=== PATIENT | female | born 1960 | race African-American/Black ===

== ENCOUNTER → 2019-02-06 15:55 | Outpatient (CLI) | payer OTHER, SELFPAY ==
--- NOTE | 2019-02-06 | DI.MRI.S_ITS ---
PROCEDURE: MR HIP RT WO CON INDICATIONS: RIGHT HIP PAIN TECHNIQUE: Noncontrast coronal T1 spin echo and STIR through the bony pelvis. Coronal and axial T2 fast spin echo with fat saturation, sagittal T1 spin echo, and oblique axial T2 fast spin echo with fat saturation through the hip. COMPARISON: [facility] [place], CR, XR PELVIS WITH BILATERAL LATERAL HIPS, 01/02/2019, 10:19. [facility], MR, MR HIP RT WO CON, 07/02/2017, 12:10. FINDINGS: Image quality: Suboptimal due to bilateral hip arthroplasty and associated hardware artifact At the right hip, no definite suspicious periarticular fluid collection or synovial thickening. Where visualized, no osseous erosion is seen. There is extensive right hip periarticular heterotopic ossification. No intraosseous lesions or fractures. Lower lumbar spondylosis. Tendons and ligaments: The gluteus medius and minimus tendons appear intact, without associated muscle atrophy. There is mild trochanter bursal fluid The nearby proximal iliotibial band also appears intact. The iliopsoas tendon appears intact, without adjacent bursal fluid collections or evidence for impingement syndrome. The origin of the hamstring tendon is intact at the ischial tuberosity, as well as the associated sacrotuberous ligament. The straight and reflected heads of the rectus femoris muscle origin appear intact, as well as the conjoint tendon. The ligamentum teres appears intact where visualized. Soft tissues: Visualized muscles demonstrate normal bulk and internal signal. Quadratus femoris muscle demonstrates no internal edema to suggest ischiofemoral impingement. The proximal sciatic neurovascular bundle appears normal adjacent to the hamstring tendons. No free pelvic fluid. Bladder wall thickness is normal. Genitourinary structures and bowel loops appear normal where visualized. IMPRESSION: Status post right hip arthroplasty. No definite synovial thickening. No visualized bone erosion identified. Right hip periarticular heterotopic ossification, better visualized on the comparison radiograph Mild trochanter bursitis Dictated by: Pablito Mckeon M.D. on 02/09/2019 at 13:45 Approved by: Pablito Mckeon M.D. on 02/09/2019 at 13:54
== END ==
PROVIDERS: Visit Provider Orthopaedic Surgery
DX: M25.551 Pain in right hip (principal); M47.816 Spondylosis without myelopathy or radiculopathy, lumbar region; M70.61 Trochanteric bursitis, right hip; Z96.643 Presence of artificial hip joint, bilateral
CPT/HCPCS: 73721

== ENCOUNTER → 2019-03-27 13:37 | Outpatient (CLI) | payer OTHER, SELFPAY ==
--- NOTE | 2019-03-27 | DI.MRI.S_ITS ---
PROCEDURE: MR HIP RT WO CON INDICATIONS: RIGHT HIP PAIN TECHNIQUE: Noncontrast coronal T1 spin echo and STIR through the bony pelvis. Coronal and axial T2 fast spin echo with fat saturation, sagittal T1 spin echo, and oblique axial T2 fast spin echo with fat saturation through the hip. COMPARISON: [facility], MR, MR HIP RT WO CON, 02/06/2019, 16:24. FINDINGS: Image quality: Degraded by hip arthroplasty artifact. Visualized marrow signal is within normal limits. No definite fracture nor osseous lesion. Bilateral hips are obscured by hip arthroplasty artifact. There is a small amount of fluid lateral to the right greater trochanter, as before. Visualized musculature and tendons are intact. Visualized bowel is grossly unremarkable. Urinary bladder grossly unremarkable. Visualized vasculature is normal in caliber. No regional adenopathy. IMPRESSION: 1. Limited examination secondary to hip arthroplasty artifact bilaterally. 2. No change in right hip trochanteric bursitis. Dictated by: Paz Mccall M.D. on 03/27/2019 at 16:44 Approved by: Paz Mccall M.D. on 03/27/2019 at 16:46
== END ==
PROVIDERS: Visit Provider Orthopaedic Surgery Adult Reconstructive Orthopaedic Surgery
DX: M25.551 Pain in right hip (principal); M70.61 Trochanteric bursitis, right hip; Z96.643 Presence of artificial hip joint, bilateral
CPT/HCPCS: 73721

== ENCOUNTER → 2019-08-12 11:18 | Outpatient (CLI) | payer OTHER, SELFPAY ==
[2019-08-12 12:25] LABS: Hemoglobin A1C% w Est Avg Glu 5.2 % (4.0-6.0)
[2019-08-12 12:26] LABS: Add Manual Diff / Slide Review NO; Basophils Absolute Auto 0 /uL (0-100); Basophils Percent Auto 0.6 % (0-2); Eosinophils Absolute Auto 100 /uL (0-450); Eosinophils Percent Auto 1.6 % (2-4); Hematocrit 39.2 % (36-46); Hemoglobin 13.2 g/dL (12.0-16.0); Lymphocytes Absolute Auto 2100 /uL (1100-4500); Lymphocytes Percent Auto 55.9 % (25-40); Mean Corpuscular HGB Conc 33.8 % (30-36); Mean Corpuscular Hemoglobin 29.4 PG (26-34); Mean Corpuscular Volume 86.9 fL (80-100); Monocytes Absolute Auto 500 /uL (0-900); Monocytes Percent Auto 12.1 % (3-14); Neutrophils Absolute Auto 1100 /uL (1500-7000); Neutrophils Percent Auto 29.8 % (50-75); Platelet Count 154 X10^3/uL (150-400); Red Blood Cell Count 4.51 X10^6/uL (4.0-5.2); Red Cell Distribution Width 14.5 % (11.6-14.8); White Blood Cell Count 3.8 X10^3/uL (4.5-11.0)
[2019-08-12 12:49] LABS: Blood Urea Nitrogen 16 mg/dL (7-17); Calcium 10.3 mg/dL (8.4-10.2); Carbon Dioxide 29 mmol/L (22-32); Chloride 103 mmol/L (98-107); Estimated Glomerular Filt Rate > 60.0 mL/min (>60); Glucose 78 mg/dL (70-100); HEMOLYSIS < 15 (0-50); Potassium 4.7 mmol/L (3.4-5.1); Sodium 138 mmol/L (137-145)
== END ==
PROVIDERS: PCP Family Medicine; Referring Provider Orthopaedic Surgery Adult Reconstructive Orthopaedic Surgery; Visit Provider Orthopaedic Surgery Adult Reconstructive Orthopaedic Surgery
DX: Z01.812 Encounter for preprocedural laboratory examination (principal); R73.9 Hyperglycemia, unspecified
CPT/HCPCS: 36415; 80048; 83036; 85025

== ENCOUNTER → 2019-08-22 11:40 | Outpatient (CLI) | payer OTHER, SELFPAY | PROVIDERS: PCP Family Medicine; Referring Provider Orthopaedic Surgery Adult Reconstructive Orthopaedic Surgery; Visit Provider Orthopaedic Surgery Adult Reconstructive Orthopaedic Surgery | DX: T84.010D Broken internal right hip prosthesis, subsequent encounter (principal) | CPT/HCPCS: 36415; 82495; 83018 ==

== ENCOUNTER → 2019-08-25 10:57 | Outpatient (CLI) | payer OTHER, SELFPAY ==
[2019-08-26 06:49] LABS: COVID19 Sendout Not Detected (Not Detect)
== END ==
PROVIDERS: PCP Family Medicine; Visit Provider Physician Assistant
DX: Z11.59 Encounter for screening for other viral diseases (principal)
CPT/HCPCS: 87635

== ENCOUNTER 2019-08-28 06:21 | Inpatient (IN) | payer OTHER, SELFPAY ==
[2019-08-24 09:53] VITALS: BMI 35.4
[2019-08-28] VITALS (15 sets, daily range): BP systolic 108–150; BP diastolic 64–97; PULSE 63–85; RESP 10–21; TEMP 35.3–36.9; O2SAT 97–100; BMI 35.4
--- NOTE | 2019-08-28 | DI.RAD.S_ITS ---
PROCEDURE: XR PELVIS 1-2V INDICATIONS: RIGHT HIP REVISION TECHNIQUE: Single view of the pelvis COMPARISON: [facility] [place], CR, XR PELVIS WITH BILATERAL LATERAL HIPS, 01/02/2019, 10:19. FINDINGS: Bones: Bilateral total hip arthroplasties. No acute complicating hardware feature identified. No fracture or dislocation. No suspicious bony lesion. Soft tissues: Visualized bowel gas pattern is normal. No suspicious soft tissue calcifications. IMPRESSION: Bilateral total hip arthroplasties. No acute complicating hardware feature demonstrated. Dictated by: Stalin Allen M.D. on 08/28/2019 at 10:46 Approved by: Stalin Allen M.D. on 08/28/2019 at 10:48
[2019-08-28] MEDS: LACTATED RINGERS 1,000 ML 42 ML IV (07:04)
[2019-08-28] MEDS: ACETAMINOPHEN 325 MG TABLET 975 MG PO (07:06)
--- NOTE | 2019-08-28 07:24 | PM.PREOP ---
Pre-operative Note COVID-19 COVID-19 status: Negative Result date/Date tested (Pos, Neg/Pending): 08/25/19 Interval Note History & Physical reviewed/Exam performed by Physician: Yes Changes to H&P: No H&P completed within 30 days and has changed as indicated here:: Plan for revision of right hip MoM hip arthroplasty for elevated ion levels and groin pain.
[2019-08-28] MEDS: CEFAZOLIN 2 GM/100 ML FROZ.PIGGY IV ×2 (07:46→16:31)
--- NOTE | 2019-08-28 08:33 | SUR.OPER ---
Lateral on padded OR bed. Gel axillary roll. Arms secured on padded armboard with pillow supporting top arm. Padded hip positioner braces x4 - anterior and posterior chest and pelvis. Additional gel pad used anterior pelvis. Gel pad under bottom leg from knee to foot and secured with tape over sheet.
[2019-08-28] MEDS: ROPIVACAINE 0.5% PF 5 MG/ML 20ML VIAL 60 ML INJ (08:57)
[2019-08-28] MEDS: ROPIVACAINE 0.5% PF 20ML 60 ML, MORPHINE 4 MG, KETOROLAC 30 MG INJ (08:58)
[2019-08-28] MEDS: TRANEXAMIC ACID 1,000 MG VIAL 1000 MG IV ×2 (09:01→09:39)
[2019-08-28] MEDS: VANCOMYCIN 1,000 MG VIAL 1000 MG TOP (09:39)
[2019-08-28] MEDS: SODIUM CHLORIDE IRRIG SOLUTION 250 ML, POVIDONE-IODINE SPONGE STICKS 1 APPLIC IRR (09:41)
--- NOTE | 2019-08-28 10:39 | PM.OP.1 ---
Operative Date/Time/Diagnoses Date of procedure: 08/28/19 Time of procedure: 10:39 Pre-op diagnosis: failed Right SWETA (metalosis) Post-op diagnosis: same Procedure & Clinicians Procedure: Revision of head liner right total hip arthroplasty Same procedure as scheduled: Yes Indications: Elevated blood cobalt and chromium levels, right hip pain. 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 Informed consent was signed in clinic but was reviewed again in the preoperative area. Patient demonstrates understanding the risks and wishes to proceed with a revision of right total hip arthroplasty likely consisting of a head liner exchange. Patient was then brought back in the operating room where she received a spinal anesthetic and transferred onto the operating room table. She was induced under general anesthesia and was placed in left lateral decubitus position all bony prominences were well padded. The right lower extremity then prepped and draped in normal sterile fashion. A surgical time-out was performed verifying the site and side of surgery as well as the name of the patient. A 15 cm long incision ellipsing out her old surgical scar was performed using 10. Blade once this was ellipsed out was removed from the field electrocautery was used to obtain hemostasis. Sharp dissection was carried down to the level the ITB band for the ITB band was then split with a 10. Blade. Old suture material was removed at this point. It was noted she had a relatively good repair of the short external rotators these were taken down in a sleeve fashion and tagged with a FiberWire. At this point we noted some metalosis staining. Cultures were obtained from intracapsular and sent. Cobra was placed underneath the gluteus medius and excess scar was removed from around the neck of the prosthesis. More metalosis was encountered and this was also removed. I tried to debride as much of the metalosis staining as was possible. The abductors were intact. At this point we dislocated the hip the head was removed from the trunnion. She did have some mild trunnionosis without compromise of the taper. A curved osteotome was then used to make a pocket superior and anterior to the acetabular cup this allowed medius shock in the femoral stem into this pocket and retract the femur anteriorly. This gave us access to the acetabular cup. Soft tissue was removed that overhung the acetabular cup and then the metal liner was removed using a vibration technique. A bone tamp was used to vibrate the acetabular shell and multiple places around the cup and the liner was able to remove removed with a curved osteotome. The acetabular cup was interrogated and found to be well fixed. As well as the stem. A trial 52 mm x 36 mm neutral liner was then screwed into place and we trialed with a 36 mm head +5 neck length. Hip was reduced and found to be stable in position of sleep as well as when hip was flexed and internally rotated rotated to about 60?. At this point it started to lever out. The hip was then dislocated and an 8.5 mm head length was trialed necks. This was found to increase her stability especially with hip flexion internal rotation to about 75-80 degrees. Hip was then uma dislocated the trial components were removed and Betadine solution was used to irrigate the wound. This was left to sit for 5 minutes prior to the copious irrigation with normal saline. A 52 mm x 36 mm neutral polyethylene liner was then selected and malleted into place. Verification of all taps sitting flush was performed. A 36 mm ceramic head with a revision sleeve in +8.5 neck length was selected and malleted onto the trunnion. Hip was then reduced a final time taken through range of motion and I satisfied with the stability. The short external rotators were then repaired with the FiberWire which was passed through the abductors. The capsular sleeve inferiorly was then repaired using an Ethibond in a running fashion. 1 g of vancomycin was then placed into the wound the ITB band was closed with a 1. Vicryl interrupted fashion the superior gluteal fascia was then closed using 1. Vicryl in a running locking fashion. A 1. Vicryl was then used in the fat layer followed by a 2 Vicryl in the subcutaneous layer followed by louise on skin and an Aquacel dressing. Complications: none Post-operative Condition: stable Disposition: PACU Plan for aftercare: 24 hours IV abx, 6 weeks DVT prophylaxis (81mg BID), posterior hip precautions, WBAT RLE
[2019-08-28] MEDS: LACTATED RINGERS 1,000 ML 125 ML IV ×2 (11:37→20:35)
[2019-08-28] MEDS: OXYCODONE IR 5 MG TABLET PO ×2 (11:38→22:25)
--- NOTE | 2019-08-28 14:10 | PC.NURSE ---
Day Shift- Report rec'd from JULIOCESAR Honeycutt in PACU at 1058. Pt arrived on unit at 1108 via bed. Pt oriented to call light and bed functions. Pt reports 6/10 aching to right hip. Ice pack in place. PRN Oxycodone given at 1138 with applesauce. RLE numbness from toes to groin area and LLE numbness from toes to mid thigh upon arrival. Pt's Nikunj in room visiting.
[2019-08-28] MEDS: ACETAMINOPHEN 325 MG TABLET 650 MG PO ×2 (15:19→20:35)
--- NOTE | 2019-08-28 15:22 | PT.IIE ---
Current Diagnoses Broken internal right hip prosthesis, subsequent encounter (08/28/19) Surgery Performed Operation Date: 08/28/19 07:45 Actual Procedures p Total Hip Arthroplasty Revision- Both Components(Right) - Jermaine Moreno MD Surgical History (Last Updated 08/24/19 @ 10:14 by Olga Casas RN) History of bilateral total hip arthroplasty (Acute 2004) History of bunionectomy (Acute) History of section (Acute) History of endometrial ablation (Acute 1999) History of hysterectomy (Acute 2014) History of removal of skin mole (Acute 2018) History of surgery (Acute 2018) Hx of cholecystectomy (Acute) Hx of removal of cyst (Acute) S/P skin biopsy (Acute 08/21/19) Medical History (Last Updated 08/24/19 @ 10:19 by lOga Casas RN) Bleeding hemorrhoids (Acute) Chronic back pain (Acute) GERD (gastroesophageal reflux disease) (Acute) HLD (hyperlipidemia) (Acute) HTN (hypertension) (Acute) Injury of left foot (Acute) Leukopenia (Acute) Osteoarthritis (Acute) Right shoulder strain (Acute) Uterine fibroid (Acute) Physical Therapy Inpatient Evaluation/Re-Eval M1 PT/OT-IP Prior Functional Status Start: 08/28/19 13:21 Freq: NEEDED Status: Active Protocol: Document 08/28/19 15:05 (Rec: 08/28/19 15:22 [email or web address]) Medical Review Prior Functional Status Medical History Reviewed Yes Diet/Fluid Consistency Regular Communication no deficits noted. able to make needs known Mobility and Gait Pt is an independent ambulator without AD. Able to garden and go for walks but she has difficulty getting up from the floor. Pt also likes to use eliptical for exercise. Activities of Daily Living and IADL's independent for ADLs and IADLs . able to drive Social History Household Members spouse,family,children Living Arrangements House Number of Floors (Floors) Two Floors Number of Stairs To Enter/Railing? split level house. 3 ARACELI to front entrance w L rails, 9 steps to 2nd floor with her bedroom, 9 steps to basement. 1 platform step through garage entrance Home Environment High Toilet,Walk in Shower Home Equipment Straight Cane,Crutches,Raised Toilet Seat w/Armrests,Tub Transfer Bench,Hand Held Shower Employment Status Retired Additional Social History Comment Pt lives with her , sister, dtr and 2 sons in [facility]. Pt had her first L SWETA in 2004 and R SWETA in 2005 M2 PT-IP Current Condition Start: 08/28/19 13:21 Freq: NEEDED Status: Active Protocol: Document 08/28/19 15:05 (Rec: 08/28/19 15:22 [email or web address]) Physical Therapy Current Condition Current Condition Evaluation Date 08/28/19 Treatment Diagnosis revision of R SWETA, difficulty in walking Onset Date 08/28/19 Precautions Posterior Hip Precautions No Hip Flexion > 90 degrees,No Hip Internal Rotation,No Hip Adduction Weight Bearing Status Weight Bearing Status Weight Bear as Tolerated M3 PT-IP Subjective Start: 08/28/19 13:21 Freq: NEEDED Status: Active Protocol: Document 08/28/19 15:05 (Rec: 08/28/19 15:22 [email or web address]) Subjective Physical Therapy Visit Type Type Initial Evaluation Visit Start Time 14:15 Visit Stop Time 15:32 Total Visit Minutes 32 Notes pt's Nikunj at bedside . Abduction pillow in place. Number of IDENTIFICATION CLERK Visits 0 Physical Therapy Visit Comments Patient Comments Im feeling pretty good. Patient Goals To return home once she is medically stable Therapy Pain Assessment Pain When Pain Assessed During Mobility Pain Present Pain Present Pain Reported Location Right Hip Intensity 7 Scale Used Numeric (0 - 10) Description Aching Pain Behaviors Facial Grimacing Pain Management Techniques Modification of Treatment,Re- positioning,Timing of Activity with Medications M4 PT-IP Mobility and Gait Start: 08/28/19 13:21 Freq: NEEDED Status: Active Protocol: Document 08/28/19 15:05 (Rec: 08/28/19 15:22 [email or web address]) PT-Bed Mobility Assessment Supine to Sit Supine to Sit Contact Guard Assistance Scooting Scooting to Edge of Bed Contact Guard Assistance PT-Transfer Assessment Sit to and From Stand Sit to and from Stand Contact Guard Assistance,Use of Upper Extremities Equipment Transfer Assistive Device Gait Belt,Front Wheeled Walker Orthotic/Prosthetic Devices or Brace: No Transfers Transfer Destination Bed,Chair Transfer Technique Stand Step Pivot Transfer Ability Level of Assist Contact Guard Assistance,Use of Upper Extremities Comments Mobility Comments Pt was in bed upon PT arrival. Feeling a little bit drowsy after being medicated. Pt recalled all 3 precautions. She completed sit to semi long sit with elbows support in bed. She then used gait belt to pivot her RLE slowly and she was cautious with her precautions. Pt then sat at R side EOB and able to scoot forward SBA/CBA. Pt completed STS afterwards with CGA and FWW and practiced lateral shifting. Denied increased pain to WB on RLE. She then proceed to amb 2 laps within her room with step to gait pattern. Pt is well aware of her heel toe pattern and presents proper gait mechanics . She amb with ~30 ft in total and able to sit down in chair with proper descent and hand placements on armrests. Pt denied discomfort. Nursing staff came in to for wound check . Left pt with call light and post op booklet. Gait Assessment Gait Gait Assistance Required: Contact Guard Assist Distance (Feet) 30 Able to Maintain Weight Bearing Status Yes During Gait Assistive Devices Assistive Device Gait Belt,Front Wheeled Walker Orthotic/Prosthetic Devices or Brace: No Gait Deviations General Gait Pattern Antalgic,Decreased Stride Length,Decreased Feet Clearance,Step-to Gait Factors Limiting Gait Function Factors Limiting Gait Function Decreased Activity Tolerance, Decreased Strength,Limited Range of Motion,Pain,Poor Balance Comments Gait Comments see mobility comments Stair Climbing Assessment Comments Stair Climbing Comments not assessed yet d/t limited activity tolerance. PT-Balance Assessment Sitting Balance and Reactions Static Sitting Balance Ability Normal Dynamic Sitting Balance Ability Normal Standing Balance and Reactions Static Standing Balance Ability Good Dynamic Standing Balance Ability Good Device Used FWW M5 PT-IP Objective Assessments Start: 08/28/19 13:21 Freq: NEEDED Status: Active Protocol: Document 08/28/19 15:05 (Rec: 08/28/19 15:22 [email or web address]) Orientation Orientation/Cognition Level of Alertness Alert Orientation Name,Age,Birthday,Month,Date, Year,Day of Week,Place, Situation Language Function Ability No Deficits Noted Safety Awareness Understands Safety Issues Memory Description No Deficits Noted Gross Range of Motion Upper Extremity ROM Assessment Within Functional Limits Lower Extremity ROM Assessment Right Impaired Strength Upper Extremity Strength Assessment Within Functional Limits Lower Extremity Strength Assessment Right Impaired Hip 4/5 Knee 5/5 Coordination Assessment Gross Coordination Gross Coordination WNL Sensation Assessment Sensation Gross Sensation WNL Muscle Tone Muscle Tone WNL Yes M6 PT-IP Treatment Start: 08/28/19 13:21 Freq: NEEDED Status: Active Protocol: Document 08/28/19 15:05 (Rec: 08/28/19 15:22 [email or web address]) Physical Therapy Treatment Exercises Exercises Ankle Pumps,Gluteal Sets,Quad Sets,Heel Slides Education Education Provided Precautions,Weight Bearing Status,Post-Op Packet,Safety M7 PT-IP Assessment and Plan Start: 08/28/19 13:21 Freq: NEEDED Status: Active Protocol: Document 08/28/19 15:05 (Rec: 08/28/19 15:22 [email or web address]) PT Summary Assessment and Plan Potential Rehabilitation Potential Excellent Status of Condition at Evaluation Stable Summary Impairments Pain,ROM,Strength,Balance, Cognition,Bed Mobility, Transfers,Gait,Activity Tolerance Assessment Summary This is a low complexity evaluation for this 59 yo female s/p POD0 revision of R SWETA posterior approach. PLOF= independent without AD for all mobility and functional activities who has a very supportive family to assist if needed. Upon assessment, pt shows good mobility with CGA and FWW. She has good understanding with post op precautions and safety awareness. Expect pt to complete stair training and CG training tomorrow morning then she could be d/c home with family's assistance and outpatient PT to improve her mobility and strength. Goals Bed Mobility Goal Standby Assistance Transfer Goal Standby Assistance,Front Wheeled Walker Gait Goal Standby Assistance,Front Wheel Walker Gait Distance 100 Other Goals up/down 1 PF step with FWW 9 steps with L rail SBA or STITCHDOWN THREAD LASTER Days to Meet Goals 3 Frequency of Treatment Frequency Of Treatment Twice a Day Treatment Plan Physical Therapy Treatment Plan Bed Mobility Training,Transfer Training,Gait Training, Therapeutic Exercise,Balance Retraining,Post Op Education, Discharge Planning,Hot or Cold Pack,Neuromuscular Re-ed Recommendations To Nursing Amount of Assist Needed 1 Person Assist Discharge Recommendations PT Discharge Recommendations Home with Assistance, Outpatient PT Transportation Needs at Discharge Private Vehicle
[2019-08-28] MEDS: DOCUSATE 100 MG CAPSULE PO (20:35)
--- NOTE | 2019-08-28 22:44 | PC.NURSE ---
Addendum entered by Adele Barcenas R.N. 08/28/19 22:58: Lab inquires re cbc ordered for 1100 this morning. This was cancelled as far past 1100 at this evening hour. Pt has orders for H and H in a.m. 08/28. Original Note: Assumed care of this patient @ 1999. Awake and alert in bed. Adductor pillow in place. Palpable pedal pulse right foot. BL calf scd's in place. Denies nausea. Taking diet well and voiding well in bathroom with minimal assistance per [employer] statement. Denies allergy to oxycodone. Administered oxycodone to manage right hip pain 4-07/04. Ice to site. Aquacel dressing to right hip is dry and intact. Encouraged to call for needs.
[2019-08-29] VITALS (9 sets, daily range): BP systolic 81–138; BP diastolic 32–81; PULSE 57–75; RESP 16–18; TEMP 36.3–36.8; O2SAT 99–100
[2019-08-29] MEDS: CEFAZOLIN 2 GM/100 ML FROZ.PIGGY IV (00:03)
[2019-08-29] MEDS: OXYCODONE IR 5 MG TABLET PO ×2 (05:15→09:02)
[2019-08-29 05:17] LABS: Hematocrit 33.5 % (36-46); Hemoglobin 11.1 g/dL (12.0-16.0)
--- NOTE | 2019-08-29 08:57 | CM.DANOTE ---
DCP: Case received, EMR reviewed and met with patient. Introduced self and role. Was able to meet with patient and obtain information from her regarding her baseline mobility and living situation. DCP assessment completed with information currently available. Patient is a 59 year old female who admitted yesterday morning to the care of the orthopedic team. PCP: Dr. Prescott. Payer: confirmed: Aletha Fermin. Patient came to the hospital for a surgical procedure. She had right total hip arthroplasty. Patient has had history of right hip prosthesis. Met with patient in her room. She was sitting up in bed having breakfast. Patient is alert and oriented, pleasant. She is currently retired, and resides in [place] with her , sister, and sons. She does have family support for when she goes home. She is independent at baseline, no DME used. She does have stairs in her home. P: DCP to continue to follow. Patient will be working with P.T. again today. She has outpatient P.T. set up at [facility] in [place]. She should be able to go home when she is medically stable and cleared by P.T. Lulu Alicea RN/Formulation Chemist
[2019-08-29] MEDS: DOCUSATE 100 MG CAPSULE PO (09:00)
[2019-08-29] MEDS: ACETAMINOPHEN 325 MG TABLET 650 MG PO ×2 (09:00→14:48)
[2019-08-29] MEDS: SODIUM CHLORIDE 0.9% 1,000 ML 1000 ML IV (09:30)
--- NOTE | 2019-08-29 10:46 | PM.PN.1 ---
Subjective Subjective Date Patient Seen: 08/29/19 Time Patient Seen: 10:46 Interval history: Patient is POD#1 from head liner exchange for elevated metal ions and groin pain from MoM R SWETA. Exam Vital Signs (past 8 hours): - 08/29/19 04:50 08/29/19 08:00 08/29/19 08:13 Temperature 98.2 F 97.4 F L Pulse Rate 57 L 73 68 Respiratory Rate 16 16 16 Blood Pressure 125/81 138/80 Pulse Oximetry 100 100 99 Oxygen Delivery Method Room Air Oxygen Flow Rate 0 Narrative Exam Narrative: NV intact in RLE, Dressing c/d/i Objective Labs Result Diagrams: 08/29/19 05:00 Labs: Laboratory Results - last 24 hr 08/29/19 05:00 Hgb 11.1 L Hct 33.5 L Assessment & Plan Assessment & Plan narrative: Patient is a 59 yo F who underwent head liner exchange of R SWETA for elevated metal ions and right groin pain from MoM SWETA. Overall she is doing well. She was mobilizing with PT well yesterday but this am had some orthostatic hypotension. She has recieved a liter bollus of saline. Will contnue to monitor. Plan ot DC home today pending PT clearance. Time Spent With Patient Time with patient: less than 15 minutes Quality VTE Deep Vein Thrombosis/Pulmonary Embolism Present on Admission: No
--- NOTE | 2019-08-29 11:11 | PT.IPTN ---
Current Diagnoses Broken internal right hip prosthesis, subsequent encounter (08/28/19) Surgery Performed Operation Date: 08/28/19 07:45 Actual Procedures p Total Hip Arthroplasty Revision- Both Components(Right) - Jermaine Moreno MD Physical Therapy Treatment Note M2 PT-IP Current Condition Start: 08/28/19 13:21 Freq: NEEDED Status: Active Protocol: Document 08/28/19 15:05 HH (Rec: 08/28/19 15:22 [id number]) Physical Therapy Current Condition Current Condition Evaluation Date 08/28/19 Treatment Diagnosis revision of R SWETA, difficulty in walking Onset Date 08/28/19 Precautions Posterior Hip Precautions No Hip Flexion > 90 degrees,No Hip Internal Rotation,No Hip Adduction Weight Bearing Status Weight Bearing Status Weight Bear as Tolerated M3 PT-IP Subjective Start: 08/28/19 13:21 Freq: NEEDED Status: Active Protocol: Document 08/29/19 10:40 KS (Rec: 08/29/19 12:48 KS [id number]) Subjective Physical Therapy Visit Type Type Treatment Note Visit Start Time 10:40 Visit Stop Time 11:11 Total Visit Minutes 31 Number of CABLE ASSEMBLER AND SWAGER Visits 1 Physical Therapy Visit Comments Patient Comments Pt agreeable to work w/ therapy. Patient Goals To return home once she is medically stable Therapy Pain Assessment Pain When Pain Assessed During Mobility Pain Present Pain Present Pain Reported Location Right Hip Scale Used no number give. tolerable Description Aching Pain Behaviors Facial Grimacing Pain Management Techniques Apply Cold,Modification of Treatment,Re-positioning, Timing of Activity with Medications M4 PT-IP Mobility and Gait Start: 08/28/19 13:21 Freq: NEEDED Status: Active Protocol: Document 08/29/19 10:40 KS (Rec: 08/29/19 12:48 KS [id number]) PT-Bed Mobility Assessment Supine to Sit Supine to Sit Contact Guard Assistance Scooting Scooting to Edge of Bed Contact Guard Assistance PT-Transfer Assessment Sit to and From Stand Sit to and from Stand Contact Guard Assistance,Use of Upper Extremities Equipment Transfer Assistive Device Gait Belt,Front Wheeled Walker Orthotic/Prosthetic Devices or Brace: No Transfers Transfer Destination Bed Transfer Ability Level of Assist Contact Guard Assistance,Use of Upper Extremities Comments Mobility Comments Pt in bed upon arrival from therapy. Reviewed LE exercises including ankle pumps, quad sets, glute sets, and heel slides which pt reports she has been completing in bed. Pt able to recall 3/3 precautions. Pt then sup<>sit CGA w/ HOB flat. Pt CGA for scooting to EOB and CGA for sit<>stand w/ FWW and use of BUE. Upon standing, pt reported feelings of dizziness and nausea. Instructed pt to sit for BP: 127/79. Pt then stood again BP:129/77. Pt still having slight dizziness but able to completed 2 bouts of marching in place, both 1 min long before requesting to sit. Pt CGA stand<>sit and sit <>sup. Pt left in bed w/ ice applied to hip, SCDs on, and all needs in reach. Gait Assessment Comments Gait Comments Unable to assess d/t reported dizziness. Stair Climbing Assessment Comments Stair Climbing Comments not assessed yet d/t limited activity tolerance and dizziness. PT-Balance Assessment Sitting Balance and Reactions Static Sitting Balance Ability Normal Dynamic Sitting Balance Ability Normal Standing Balance and Reactions Static Standing Balance Ability Good Dynamic Standing Balance Ability Good Device Used FWW M5 PT-IP Objective Assessments Start: 08/28/19 13:21 Freq: NEEDED Status: Active Protocol: Document 08/28/19 15:05 (Rec: 08/28/19 15:22 [email or web address]) Orientation Orientation/Cognition Level of Alertness Alert Orientation Name,Age,Birthday,Month,Date, Year,Day of Week,Place, Situation Language Function Ability No Deficits Noted Safety Awareness Understands Safety Issues Memory Description No Deficits Noted Gross Range of Motion Upper Extremity ROM Assessment Within Functional Limits Lower Extremity ROM Assessment Right Impaired Strength Upper Extremity Strength Assessment Within Functional Limits Lower Extremity Strength Assessment Right Impaired Hip 4/5 Knee 5/5 Coordination Assessment Gross Coordination Gross Coordination WNL Sensation Assessment Sensation Gross Sensation WNL Muscle Tone Muscle Tone WNL Yes M6 PT-IP Treatment Start: 08/28/19 13:21 Freq: NEEDED Status: Active Protocol: Document 08/29/19 10:40 KS (Rec: 08/29/19 12:48 KS [id number]) Physical Therapy Treatment Exercises Exercises Ankle Pumps,Gluteal Sets,Quad Sets,Heel Slides Education Education Provided Precautions,Weight Bearing Status,Post-Op Packet,Safety M7 PT-IP Assessment and Plan Start: 08/28/19 13:21 Freq: NEEDED Status: Active Protocol: Document 08/29/19 10:40 KS (Rec: 08/29/19 12:48 KS [id number]) PT Summary Assessment and Plan Potential Rehabilitation Potential Excellent Status of Condition at Evaluation Stable Summary Impairments Pain,ROM,Strength,Balance, Cognition,Bed Mobility, Transfers,Gait,Activity Tolerance Assessment Summary Pt continues to be CGA for bed mobility and sit<>stand. Limited by dizziness and nausea today likely to pain medication. Pt completed 2, 1 min bouts of marching in place w/ FWW. Will assess pts ambulation and possibly stair training later this afternoon w/ pts depending on how pt is feeling. Pt will need to complete 9 steps w/ caregiver prior to d/c. Anticipate pt will become strong enough to return home w/ family providing assistance. Goals Bed Mobility Goal Standby Assistance Transfer Goal Standby Assistance,Front Wheeled Walker Gait Goal Standby Assistance,Front Wheel Walker Gait Distance 100 Other Goals up/down 1 PF step with FWW 9 steps with L rail SBA or GARDE MANGER Days to Meet Goals 3 Frequency of Treatment Frequency Of Treatment Twice a Day Treatment Plan Physical Therapy Treatment Plan Bed Mobility Training,Transfer Training,Gait Training, Therapeutic Exercise,Balance Retraining,Post Op Education, Discharge Planning,Hot or Cold Pack,Neuromuscular Re-ed Recommendations To Nursing Amount of Assist Needed 1 Person Assist Discharge Recommendations PT Discharge Recommendations Home with Assistance, Outpatient PT Transportation Needs at Discharge Private Vehicle
--- NOTE | 2019-08-29 11:59 | PC.NURSE ---
Patient had urge to urinate this morning, assisted to sit at edge of bed. Patient complained of some dizziness. BP lowered with sitting at edge of bed, attempted to sit for a few minutes hoping it would resolve but did not. Dr. Moreno up to unit at this time and notified, 1 liter normal saline bolus ordered and given. Patient assisted to lay back in bed and attempted to use bedpan instead for safety. Bolus completed and patient now feeling better. Patient was up to BSC with HOSPITAL SECURITY OFFICER and RN and walker, denied dizziness and blood pressure remained stable. Plan for PT and training with today. Discharge anticipated if stable. Continue to monitor.
--- NOTE | 2019-08-29 13:34 | PT.IPTN ---
Current Diagnoses Broken internal right hip prosthesis, subsequent encounter (08/28/19) Surgery Performed Operation Date: 08/28/19 07:45 Actual Procedures p Total Hip Arthroplasty Revision- Both Components(Right) - Jermaine Moreno MD Physical Therapy Treatment Note M2 PT-IP Current Condition Start: 08/28/19 13:21 Freq: NEEDED Status: Active Protocol: Document 08/28/19 15:05 HH (Rec: 08/28/19 15:22 HH [id number]) Physical Therapy Current Condition Current Condition Evaluation Date 08/28/19 Treatment Diagnosis revision of R SWETA, difficulty in walking Onset Date 08/28/19 Precautions Posterior Hip Precautions No Hip Flexion > 90 degrees,No Hip Internal Rotation,No Hip Adduction Weight Bearing Status Weight Bearing Status Weight Bear as Tolerated M3 PT-IP Subjective Start: 08/28/19 13:21 Freq: NEEDED Status: Active Protocol: Document 08/29/19 12:54 KS (Rec: 08/29/19 14:46 KS [id number]) Subjective Physical Therapy Visit Type Type Treatment Note Visit Start Time 12:54 Visit Stop Time 13:34 Total Visit Minutes [address] OFFICER Visits 2 Physical Therapy Visit Comments Patient Comments Pt agreeable to work w/ therapy. Patient Goals To return home once she is medically stable Therapy Pain Assessment Pain When Pain Assessed During Mobility Pain Present Pain Present Pain Reported Location Right Hip Scale Used no number give. tolerable Description Aching Pain Behaviors Facial Grimacing Pain Management Techniques Apply Cold,Modification of Treatment,Re-positioning, Timing of Activity with Medications M4 PT-IP Mobility and Gait Start: 08/28/19 13:21 Freq: NEEDED Status: Active Protocol: Document 08/29/19 12:54 KS (Rec: 08/29/19 14:46 KS [id number]) PT-Bed Mobility Assessment Supine to Sit Supine to Sit Standby Assistance Scooting Scooting to Edge of Bed Standby Assistance PT-Transfer Assessment Sit to and From Stand Sit to and from Stand Contact Guard Assistance,Use of Upper Extremities Equipment Transfer Assistive Device Gait Belt,Front Wheeled Walker Orthotic/Prosthetic Devices or Brace: No Transfers Transfer Destination Bed Transfer Ability Level of Assist Contact Guard Assistance,Use of Upper Extremities Comments Mobility Comments Pt in bed upon arrival from therapy w/ in room for caregiver traning. PT SBA for sup<>sit and scooting EOB. CGA for sit<>stand w/ FWW. Pt denied dizziness upon standing . Pt then ambulated CGA to w/c to be taken to stairs. Pt then completed 3x3 steps CGA w / cues for sequencing. Pts provided cues and CGA on 2nd and 3rd sets. Pt then ambulated ~75 ft back towards room w/ FWW and CGA provided by and was taken in w/ c remainder of distance. Pt sit<>stand from w/c and ambulated to bed w/ FWW CGA provided by . Pt returned to bed SBA. Pt left in bed w/ all needs in reach and ice and SCDs applied. Gait Assessment Gait Gait Assistance Required: Contact Guard Assist Distance (Feet) 85 Able to Maintain Weight Bearing Status Yes During Gait Assistive Devices Assistive Device Gait Belt,Front Wheeled Walker Orthotic/Prosthetic Devices or Brace: No Gait Deviations General Gait Pattern Antalgic,Decreased Stride Length,Decreased Feet Clearance,Step-to Gait Factors Limiting Gait Function Factors Limiting Gait Function Decreased Activity Tolerance, Decreased Strength,Limited Range of Motion,Pain,Poor Balance Comments Gait Comments Pt ambulated ~85 ft w/ FWW and CGA safely provided by . Cues for equal step length and heel toe walking. Stair Climbing Assessment Evaluation Level of Assist On Stairs Contact Guard Assistance,1 Person Assistance Devices Stair Climbing Assistive Devices Left Railing,Right Railing Technique/Endurance Stair Climbing Direction Ascend and Descend Stair Climbing Technique Step to Step Number of Steps Climbed 3 Stair Climbing Set # Repetitions (reps) 3 Comments Stair Climbing Comments Pt ascended/descended 3 steps x3 w/ CGA from therapist on first step and CGA and cues from on second and third sets. Pt used step to step pattern and bilateral handrails as she has at home. Pt and state they feel safe to complete steps at home. PT-Balance Assessment Sitting Balance and Reactions Static Sitting Balance Ability Normal Dynamic Sitting Balance Ability Normal Standing Balance and Reactions Static Standing Balance Ability Good Dynamic Standing Balance Ability Good Device Used FWW M5 PT-IP Objective Assessments Start: 08/28/19 13:21 Freq: NEEDED Status: Active Protocol: Document 08/28/19 15:05 (Rec: 08/28/19 15:22 [email or web address]) Orientation Orientation/Cognition Level of Alertness Alert Orientation Name,Age,Birthday,Month,Date, Year,Day of Week,Place, Situation Language Function Ability No Deficits Noted Safety Awareness Understands Safety Issues Memory Description No Deficits Noted Gross Range of Motion Upper Extremity ROM Assessment Within Functional Limits Lower Extremity ROM Assessment Right Impaired Strength Upper Extremity Strength Assessment Within Functional Limits Lower Extremity Strength Assessment Right Impaired Hip 4/5 Knee 5/5 Coordination Assessment Gross Coordination Gross Coordination WNL Sensation Assessment Sensation Gross Sensation WNL Muscle Tone Muscle Tone WNL Yes M6 PT-IP Treatment Start: 08/28/19 13:21 Freq: NEEDED Status: Active Protocol: Document 08/29/19 12:54 KS (Rec: 08/29/19 14:46 KS [id number]) Physical Therapy Treatment Education Education Provided Precautions,Weight Bearing Status,Post-Op Packet,Safety M7 PT-IP Assessment and Plan Start: 08/28/19 13:21 Freq: NEEDED Status: Active Protocol: Document 08/29/19 12:54 KS (Rec: 08/29/19 14:46 KS [id number]) PT Summary Assessment and Plan Potential Rehabilitation Potential Excellent Status of Condition at Evaluation Stable Summary Impairments Pain,ROM,Strength,Balance, Cognition,Bed Mobility, Transfers,Gait,Activity Tolerance Assessment Summary Pt SBA for bed mobility, CGA for transfers and ambulation and stairs. Conducted caregiver training w/ pts who was able to apply gait belt and provide appropriate assist and cues when needed for bed mobility, transfers, ambulation and stairs. Pt ambulated ~85 ft w/ FWW and has FWW to use at home. Pt also completed 9 total steps w/ bilat handrail. Pt has OPPT set up and her and state they feel safe to perform ambulation and stairs at home. Goals Bed Mobility Goal Standby Assistance Transfer Goal Standby Assistance,Front Wheeled Walker Gait Goal Standby Assistance,Front Wheel Walker Gait Distance 100 Other Goals up/down 1 PF step with FWW 9 steps with L rail SBA or DIRECTOR CLINICAL OPERATIONS Days to Meet Goals 3 Frequency of Treatment Frequency Of Treatment Twice a Day Treatment Plan Physical Therapy Treatment Plan Bed Mobility Training,Transfer Training,Gait Training, Therapeutic Exercise,Balance Retraining,Post Op Education, Discharge Planning,Hot or Cold Pack,Neuromuscular Re-ed Recommendations To Nursing Amount of Assist Needed 1 Person Assist Discharge Recommendations PT Discharge Recommendations Home with Assistance, Outpatient PT Transportation Needs at Discharge Private Vehicle
--- NOTE | 2019-08-29 15:28 | PC.NURSE ---
Patient worked with Valentina copeland 2 today and cleared for discharge. BP has been stable since this morning after IV fluid bolus and tolerated ambulation with assistance and walker and then a shower with MOLD YARD SUPERVISOR's assistance. Patient feeling ready for discharge to home. Aquacel remains intact without drainage. IV removed intact. Patient to flower picker prescriptions but states she is going to try to avoid narcotic use and stay with tylenol and ice as needed for pain control. Aspirin for blood clot prevent to start per prescription and patient aware. She states understanding of discharge instructions and she and her have no further questions at this time. Patient states her follow up appointment is already scheduled. INstructed to call surgeon for questions or concerns. Instructed to seek emergent care for emergency. Escorted out via wheelchair with all belongings to be discharged to home with her by PAT.
== END 2019-08-29 15:32 | disposition home or self-care (01) | DRG 468 ==
PROVIDERS: Admitting Provider Orthopaedic Surgery Adult Reconstructive Orthopaedic Surgery; PCP Family Medicine; Referring Provider Orthopaedic Surgery Adult Reconstructive Orthopaedic Surgery; Visit Provider Orthopaedic Surgery Adult Reconstructive Orthopaedic Surgery
PROC: 0SRR03A Replacement of Right Hip Joint, Femoral Surface with Ceramic Synthetic Substitute, Uncemented, Open Approach (ICD-10-PCS; principal; 2019-08-28 07:45)
DX: T84.090A Other mechanical complication of internal right hip prosthesis, initial encounter (principal); T56.891A Toxic effect of other metals, accidental (unintentional), initial encounter; T56.2X1A Toxic effect of chromium and its compounds, accidental (unintentional), initial encounter; J45.20 Mild intermittent asthma, uncomplicated; I10 Essential (primary) hypertension; Z96.643 Presence of artificial hip joint, bilateral; I95.1 Orthostatic hypotension
CPT/HCPCS: 36415; 36592; 72170; 85014; 85018; 87070; 87075; 87176; 87205; 97110; 97116; 97161; 97530; C1776; J0690; J1100; J1885; J2250; J2270; J2405; J2704; J2795; J3010

== ENCOUNTER → 2023-07-03 11:13 | Outpatient (CLI) | payer OTHER, SELFPAY ==
[2020-06-02 09:26] VITALS: BMI 35.4
--- NOTE | 2023-07-03 12:46 | DI.MRI.S_ITS ---
PROCEDURE: MR SHOULDER LT WO CON INDICATIONS: PAIN IN LEFT SHOULDER TECHNIQUE: Noncontrast oblique coronal T2 fast spin echo with fat saturation, oblique sagittal T1 spin echo and T2 fast spin echo with fat saturation, axial T1 spin echo and T2 fast spin echo with fat saturation through the shoulder. COMPARISON: [facility] [place], CR, XR SHOULDER 2+ VIEWS LEFT, 06/10/2023, 11:19. FINDINGS: Image quality: Limited evaluation secondary to patient motion and susceptibility artifact with inability of fat suppression on multiple sequences. Rotator cuff: In the supraspinatus, there is mild tendinosis with low-grade interstitial tear at the footprint. The infraspinatus is unremarkable. The teres minor is unremarkable. Moderate tendinosis of the subscapularis with high-grade tear. There is mild fatty infiltration the supraspinatus infraspinatus. Bones and bursae: Mild degenerative changes of the acromioclavicular joint. Type 1 acromion. No os acromiale. No significant subacromial bursitis. Marrow edema in the greater tuberosity, reactive. There is severe degenerative change of the glenohumeral joint with complete chondral denudation of the humeral head, and humeral head osteophytosis. No acute fracture. Capsule and soft tissues: Diffuse labral degeneration. Severe tenosynovitis of the extra-articular biceps tendon. Mild tendinosis of the intra-articular biceps tendon. Large glenohumeral effusion with synovitis. Large subcoracoid bursitis. IMPRESSION: 1. Susceptibility artifact, limiting evaluation. 2. Low-grade tear of the supraspinatus. 3. High-grade tear of the subscapularis. 4. Severe tenosynovitis of the extra-articular biceps tendon. 5. severe degenerative changes of the glenohumeral joint. Large glenohumeral effusion with synovitis. Large subcoracoid bursitis. Dictated by: Deirdre Garibay M.D. on 07/03/2023 at 13:55 Approved by: Deirdre Garibay M.D. on 07/03/2023 at 14:07
== END ==
LOC: MRI 11:15
PROVIDERS: Family Provider Student in an Organized Health Care Education/Training Program; PCP Student in an Organized Health Care Education/Training Program; Referring Provider Orthopaedic Surgery; Visit Provider Orthopaedic Surgery
DX: M25.512 Pain in left shoulder (principal); M75.102 Unspecified rotator cuff tear or rupture of left shoulder, not specified as traumatic; M65.812 Other synovitis and tenosynovitis, left shoulder; M75.52 Bursitis of left shoulder
CPT/HCPCS: 73221

== ENCOUNTER 2023-07-18 14:30 | Outpatient (RCR) | payer OTHER, SELFPAY ==
[2020-06-02 09:26] VITALS: BMI 35.4
--- NOTE | 2023-04-02 17:04 | PT.OIE ---
Current Diagnoses Lymphedema, not elsewhere classified (04/02/23) Past Medical History (Last Reviewed 06/21/20 @ 18:28 by Shawn Ching MD) Bleeding hemorrhoids Chronic back pain GERD (gastroesophageal reflux disease) HLD (hyperlipidemia) HTN (hypertension) Injury of left foot Leukopenia Osteoarthritis Right shoulder strain Uterine fibroid Past Surgical History (Last Reviewed 06/21/20 @ 18:28 by Shawn Ching MD) History of bilateral total hip arthroplasty (2004) History of bunionectomy History of section History of endometrial ablation (1999) History of hysterectomy (2014) History of removal of skin mole (2018) History of surgery (2018) Hx of cholecystectomy Hx of removal of cyst S/P skin biopsy (08/21/19) Visit Care Team Role Provider Type Tia Diaz MD Family Provider Non-Staff Primary Care Provider Specialty: Medical Address: [address] [place] [address], [id number] Email: KARLOS Mendoza Attending Provider Non-Staff Referring Provider Specialty: Nursing Address: [address] [place] [address], [phone] Fax: Email: Physical Therapy Initial Evaluation PT-OP-A Visit Information Start: 04/01/23 16:08 Freq: Status: Active Protocol: Document 04/02/23 13:43 SAK (Rec: 04/02/23 15:16 [facility] [id number]) Out-Patient Physical Therapy Visit Information Visit Information Visit Type Initial Evaluation Visit Start Time 13:45 Visit Stop Time 15:10 Visit Number 1 Evaluation Information Evaluation Date 04/02/23 PT-OP-B Current Condition Start: 04/01/23 16:08 Freq: Status: Active Protocol: Document 04/02/23 13:43 SAK (Rec: 04/02/23 15:16 [facility] [id number]) Current Condition History of Current Condition Onset Date 3 years Current Complaints lashaun LE swelling right greater than left History of Current Condition Right SWETA 2005, (left in 2004) . Prior to revision right hip started to get swelling right LE, now has started to increase on the right side. Was wearing pantyhose style 20 -30 mm Hg, but had to go to ER due to BP issue, started wearing socks only. Swelling continues to worsen. Wear compression socks 15-20 knee high, then KT tape upper legs. Does exercises; free weights , gazelle Prior Functional Status Baseline Function- ADL's Independent Baseline Function- Mobility Independent Baseline Function- Gait indep Current Functional Impairments (Reported) Functional Limitations- ADL's modified indep, legs heavy Functional Limitations- Mobility/Gait limited distance PT-OP-C Subjective Start: 04/01/23 16:08 Freq: Status: Active Protocol: Document 04/02/23 13:43 [facility] (Rec: 04/02/23 17:03 [facility] [id number]) Patient Questionnaires Lymphedema Life Impact Score Lymphedema Score 13 OP-PT Pain Assessment Pain Assessment Grid Paper Pain Assessment Grid Completed Yes Comments Pain Comments min pain, edema is the major issue PT-OP-J Posture/Palpation/Skin Start: 04/01/23 16:08 Freq: Status: Active Protocol: Document 04/02/23 13:43 SAK (Rec: 04/02/23 17:03 [facility] [id number]) Palpation Assessment Location lashaun LE Palpation Details no palpable fibrosis PT-OP-K Range of Motion Start: 04/01/23 16:08 Freq: Status: Active Protocol: Document 04/02/23 13:43 [facility] (Rec: 04/02/23 17:03 [facility] [id number]) Hip Goniometric Range of Motion Hip lashaun Hip ROM WFL Yes Knee Goniometric Range of Motion Knee lashaun Knee ROM WFL Yes Ankle and Foot Goniometric Range of Motion Ankle and Foot lashaun Ankle/Foot ROM WFL Yes PT-OP-N Lymphedema Start: 04/01/23 16:08 Freq: Status: Active Protocol: Document 04/02/23 13:43 [facility] (Rec: 04/02/23 15:16 [facility] [id number]) Lymphedema Measurements Lower Extremity Circumference Measurements Right Affected MT Heads 28.6 cm Mid-foot 26.8 cm Medial Malleolus 31.9 cm 10 cm From Medial Malleolus 32.8 cm 20 cm From Medial Malleolus 43.1 cm 30 cm From Medial Malleolus 47.4 cm 40 cm From Medial Malleolus 50.4 cm 50 cm From Medial Malleolus 62 cm 60 cm From Medial Malleolus 71.6 cm 70 cm From Medial Malleolus 84 cm Knee Joint 52.1 cm Hip 92.9 cm Left Affected MT Heads 26.9 cm Mid-foot 27.5 cm Medial Malleolus 31 cm 10 cm From Medial Malleolus 34.2 cm 20 cm From Medial Malleolus 43.5 cm 30 cm From Medial Malleolus 46.8 cm 40 cm From Medial Malleolus 50.4 cm 50 cm From Medial Malleolus 61.9 cm 60 cm From Medial Malleolus 69.2 cm 70 cm From Medial Malleolus 80.9 cm Knee Joint 50.4 cm Hip 91.3 cm PT-OP-Q Treatments Start: 04/01/23 16:08 Freq: Status: Active Protocol: Document 04/02/23 13:43 [facility] (Rec: 04/02/23 17:03 [facility] [id number]) Lymphedema Treatment Manual Lymphatic Drainage Location for right LE lymphedema Duration 20 Lymphedema Wrapping Other discussed Sequential Lymphedema Exercises Comments instructed and issued written handout Compression Garment Assessment Compression Garment Assessment Details discussed options. current compression socks fit well but low compression. Kinesiotape applied well but not sufficient. Patient Education Lymphedema Pathology educated Lymphedema Prevention educated Lymphedema Precautions educated Compression Garments educated Self Manual Lymphatic Drainage educated Sequential Lymphedema Exercises educated Other handouts issued. PT-OP-T Assessment and Plan Start: 04/01/23 16:08 Freq: Status: Active Protocol: Document 04/02/23 13:43 [facility] (Rec: 04/02/23 15:16 [facility] [id number]) Physical Therapy Assessment Rehab Potential Rehabilitation Potential Good Evaluation Complexity Number of Personal Factors/Comorbidities 1-2 Number of Body Systems Impaired 3 Clinical Presentation at Evaluation Evolving Impairments Impairments Activity Tolerance,Edema Goals Two Impairment activity tolerance Impairment Lymphedema Life Impact Scale 13% Adjunct Instructor In Economics Goal (LTG) Decrease Lymphedema Life impact scale to no greater than 5% as measure of improved activity tolerance, ability to manage her lymphedema, and improved quality of life LTG Duration 07/01/23 One Impairment lymphedema lashaun LE's right greater than left Short Term Goal (STG) Patient will be instructed in all aspects of lymphedema self -care to include skin care, elevation, self-massage, self- bandaging/compression options, and lymphedema exercises. STG Duration 05/01/23 Shelter Goal (LTG) Decrease patient?s lymphedema to a stable level (no increase or decrease greater than 1 cm over the course of 1 week), patient to be independent with all aspects of self-care for lymphedema, and will obtain appropriate compression garment for lymphedema management in the home. LTG Duration 07/01/23 Assessment Summary Assessment Patient presents to PT with function-limiting lymphedema lashaun LE's right greater than left with onset following 2004 left SWETA, 2005 right SWETA, revision right SWETA 2019. Patient has history also of c- section and gall bladder removal. She tried to wear full length compression previously but had poor experiene, tolerating poorly. Currently wears knee high compression socks 12-15 mm Hg pressure lashaun, KT tape on thighs. Pt edema worst in thighs right greater than left . Fair scar mobility from right SWETA. Feel patient would benefit from PT to address her lashaun LE lymphedema with goals as above. Additionally may benefit from the use of a sequential pneumatic pump for use in the home. Initiated patient education for lymphedema management including elevation, skin care , manual lymphatic drainage, exercise and compression with abbreviated MLD today for right LE. Issued educational handouts for all, included local and online resources. Patient demonstrated good understanding. Discussed POC and patient was in agreement. Physical Therapy Plan Frequency and Duration Frequency of Treatment 20 visits Duration of treatment (weeks) 12 Plan of Care Start Date 04/02/23 Plan of Care End Date 07/01/23 Therapeutic Interventions Therapeutic Interventions Home Exercise Program, Lymphedema Management,Manual Therapy,Patient/Caregiver Education,Self-Care/Home Management,Soft Tissue Mobilization,Taping, Therapeutic Activities, Therapeutic Exercises Next Visit Focus/Plan Next Note Type Treatment Note Next Visit Plan Perform MLD, review lymphedema exercise, provide skin care, compression bandaging with ongoing patient education. Assess any compression garments patient brings in for appropriateness.
--- NOTE | 2023-04-02 17:04 | PT.OPPOC ---
Physical, Occupational & Speech Therapy At [facility] Current Diagnoses Lymphedema, not elsewhere classified (04/02/23) Visit Care Team Role Provider Type Tia Diaz MD Family Provider Non-Staff Primary Care Provider Specialty: Medical Address: [address] [place], [address] Email: KARLOS Mendoza Attending Provider Non-Staff Referring Provider Specialty: Nursing Address: [address] [place], [address] Fax: Email: Plan Of Care PT-OP-T Assessment and Plan Start: 04/01/23 16:08 Freq: Status: Active Protocol: Document 04/02/23 13:43 SWATI (Rec: 04/02/23 15:16 SAK [id number]) Physical Therapy Assessment Rehab Potential Rehabilitation Potential Good Evaluation Complexity Number of Personal Factors/Comorbidities 1-2 Number of Body Systems Impaired 3 Clinical Presentation at Evaluation Evolving Impairments Impairments Activity Tolerance,Edema Goals Two Impairment activity tolerance Impairment Lymphedema Life Impact Scale 13% Jail Goal (LTG) Decrease Lymphedema Life impact scale to no greater than 5% as measure of improved activity tolerance, ability to manage her lymphedema, and improved quality of life LTG Duration 07/01/23 One Impairment lymphedema lashaun LE's right greater than left Short Term Goal (STG) Patient will be instructed in all aspects of lymphedema self -care to include skin care, elevation, self-massage, self- bandaging/compression options, and lymphedema exercises. STG Duration 05/01/23 Jail Goal (LTG) Decrease patient?s lymphedema to a stable level (no increase or decrease greater than 1 cm over the course of 1 week), patient to be independent with all aspects of self-care for lymphedema, and will obtain appropriate compression garment for lymphedema management in the home. LTG Duration 07/01/23 Assessment Summary Assessment Patient presents to PT with function-limiting lymphedema lashaun LE's right greater than left with onset following 2005 left SWETA, 2006 right SWETA, revision right SWETA 2019. Patient has history also of c- section and gall bladder removal. She tried to wear full length compression previously but had poor experiene, tolerating poorly. Currently wears knee high compression socks 12-15 mm Hg pressure lashaun, KT tape on thighs. Pt edema worst in thighs right greater than left . Fair scar mobility from right SWETA. Feel patient would benefit from PT to address her lashaun LE lymphedema with goals as above. Additionally may benefit from the use of a sequential pneumatic pump for use in the home. Initiated patient education for lymphedema management including elevation, skin care , manual lymphatic drainage, exercise and compression with abbreviated MLD today for right LE. Issued educational handouts for all, included local and online resources. Patient demonstrated good understanding. Discussed POC and patient was in agreement. Physical Therapy Plan Frequency and Duration Frequency of Treatment 20 visits Duration of treatment (weeks) 12 Plan of Care Start Date 04/02/23 Plan of Care End Date 07/01/23 Therapeutic Interventions Therapeutic Interventions Home Exercise Program, Lymphedema Management,Manual Therapy,Patient/Caregiver Education,Self-Care/Home Management,Soft Tissue Mobilization,Taping, Therapeutic Activities, Therapeutic Exercises Next Visit Focus/Plan Next Note Type Treatment Note Next Visit Plan Perform MLD, review lymphedema exercise, provide skin care, compression bandaging with ongoing patient education. Assess any compression garments patient brings in for appropriateness. Plan of Care Dates Plan of Care Start Date 04/02/23 Plan of Care End Date 07/01/23 Electronically Signed by: Grecia Manley, PT 04/02/23 [id number] If you are in agreement with this Plan of Care, please return a signed and dated copy. I have reviewed this Plan of Care and certify that the skilled therapy services above are required to meet the patient?s needs. Physician Signature Date Printed Name and Credentials Clinical Instructor Signature Printed Name and Credentials
--- NOTE | 2023-04-03 12:05 | PT.OTN ---
Current Diagnoses Lymphedema, not elsewhere classified (04/03/23) Physical Therapy Treatment Note PT-OP-A Visit Information Start: 04/01/23 16:08 Freq: Status: Active Protocol: Document 04/03/23 10:45 SAK (Rec: 04/03/23 11:05 [facility] [id number]) Out-Patient Physical Therapy Visit Information Visit Information Visit Type Initial Evaluation Visit Start Time 10:32 Visit Stop Time 11:59 Visit Number 90 Evaluation Information Evaluation Date 04/02/23 PT-OP-B Current Condition Start: 04/01/23 16:08 Freq: Status: Active Protocol: Document 04/03/23 10:45 SAK (Rec: 04/03/23 11:05 [facility] [id number]) Current Condition History of Current Condition Onset Date 3 years Current Complaints lashaun LE swelling right greater than left History of Current Condition Right SWETA 2005, (left in 2004) . Prior to revision right hip started to get swelling right LE, now has started to increase on the right side. Was wearing pantyhose style 20 -30 mm Hg, but had to go to ER due to BP issue, started wearing socks only. Swelling continues to worsen. Wear compression socks 15-20 knee high, then KT tape upper legs. Does exercises; free weights , gazelle PT-OP-C Subjective Start: 04/01/23 16:08 Freq: Status: Active Protocol: Document 04/02/23 13:43 SAK (Rec: 04/02/23 17:03 [facility] [id number]) Patient Questionnaires Lymphedema Life Impact Score Lymphedema Score 13 OP-PT Pain Assessment Pain Assessment Grid Paper Pain Assessment Grid Completed Yes Comments Pain Comments min pain, edema is the major issue PT-OP-J Posture/Palpation/Skin Start: 04/01/23 16:08 Freq: Status: Active Protocol: Document 04/02/23 13:43 SAK (Rec: 04/02/23 17:03 [facility] [id number]) Palpation Assessment Location lashaun LE Palpation Details no palpable fibrosis PT-OP-K Range of Motion Start: 04/01/23 16:08 Freq: Status: Active Protocol: Document 04/02/23 13:43 SAK (Rec: 04/02/23 17:03 [facility] [id number]) Hip Goniometric Range of Motion Hip lashaun Hip ROM WFL Yes Knee Goniometric Range of Motion Knee lashaun Knee ROM WFL Yes Ankle and Foot Goniometric Range of Motion Ankle and Foot lashaun Ankle/Foot ROM WFL Yes PT-OP-N Lymphedema Start: 04/01/23 16:08 Freq: Status: Active Protocol: Document 04/02/23 13:43 [facility] (Rec: 04/02/23 15:16 [facility] [id number]) Lymphedema Measurements Lower Extremity Circumference Measurements Right Affected MT Heads 28.6 cm Mid-foot 26.8 cm Medial Malleolus 31.9 cm 10 cm From Medial Malleolus 32.8 cm 20 cm From Medial Malleolus 43.1 cm 30 cm From Medial Malleolus 47.4 cm 40 cm From Medial Malleolus 50.4 cm 50 cm From Medial Malleolus 62 cm 60 cm From Medial Malleolus 71.6 cm 70 cm From Medial Malleolus 84 cm Knee Joint 52.1 cm Hip 92.9 cm Left Affected MT Heads 26.9 cm Mid-foot 27.5 cm Medial Malleolus 31 cm 10 cm From Medial Malleolus 34.2 cm 20 cm From Medial Malleolus 43.5 cm 30 cm From Medial Malleolus 46.8 cm 40 cm From Medial Malleolus 50.4 cm 50 cm From Medial Malleolus 61.9 cm 60 cm From Medial Malleolus 69.2 cm 70 cm From Medial Malleolus 80.9 cm Knee Joint 50.4 cm Hip 91.3 cm PT-OP-Q Treatments Start: 04/01/23 16:08 Freq: Status: Active Protocol: Document 04/03/23 10:45 [facility] (Rec: 04/03/23 12:04 [facility] [id number]) Cardio Equipment Recumbent Stepper (Sci-Fit) Duration (Minutes) 5 Resistance 1 Seat Position 12 Other to facilitate lymphatic flow after bandaging Lymphedema Treatment Manual Lymphatic Drainage Location for lashaun LE lymphedema Duration 30 Lymphedema Wrapping Body Location lashaun LE's Materials Tricofix size G, 2 small and 2 large Artiflex each leg, Comprilan 6, 8x2, 10, 12 each leg. Patient instruction in self-bandaging Compression Garment Assessment Compression Garment Assessment Details Evaluated patient Jobst pantyhose 20-30 mm Hg, instructed in donning technique. Fair fit noted. PT-OP-T Assessment and Plan Start: 04/01/23 16:08 Freq: Status: Active Protocol: Document 04/03/23 10:45 [facility] (Rec: 04/03/23 11:05 [facility] [id number]) Physical Therapy Assessment Goals Two Impairment activity tolerance Impairment Lymphedema Life Impact Scale 13% [employer] Display Builder Goal (LTG) Decrease Lymphedema Life impact scale to no greater than 5% as measure of improved activity tolerance, ability to manage her lymphedema, and improved quality of life LTG Duration 07/01/23 One Impairment lymphedema lashaun LE's right greater than left Short Term Goal (STG) Patient will be instructed in all aspects of lymphedema self -care to include skin care, elevation, self-massage, self- bandaging/compression options, and lymphedema exercises. STG Duration 05/01/23 [employer] Display Builder Goal (LTG) Decrease patient?s lymphedema to a stable level (no increase or decrease greater than 1 cm over the course of 1 week), patient to be independent with all aspects of self-care for lymphedema, and will obtain appropriate compression garment for lymphedema management in the home. LTG Duration 07/01/23 Assessment Summary Assessment Patient had good tolerance for MLD and while PT performed on one side she worked on mirroring technique on opposite, asking appropriate questions. Patient receptive to bandaging today, advised to repeat every 24-48 hrs; wear 23 hrs per day as tolerated. If not able to tolerate bandaging pt instructed to wear compressing stockings or tights as shown today Physical Therapy Plan Frequency and Duration Frequency of Treatment 20 visits Duration of treatment (weeks) 12 Plan of Care Start Date 04/02/23 Plan of Care End Date 07/01/23 Therapeutic Interventions Therapeutic Interventions Home Exercise Program, Lymphedema Management,Manual Therapy,Patient/Caregiver Education,Self-Care/Home Management,Soft Tissue Mobilization,Taping, Therapeutic Activities, Therapeutic Exercises Next Visit Focus/Plan Next Note Type Treatment Note Next Visit Plan Circumferential measurementsPerform MLD, compression bandaging with ongoing patient education.
--- NOTE | 2023-04-08 16:21 | PT.OTN ---
Current Diagnoses Lymphedema, not elsewhere classified (04/08/23) Physical Therapy Treatment Note PT-OP-A Visit Information Start: 04/01/23 16:08 Freq: Status: Active Protocol: Document 04/08/23 14:27 SAK (Rec: 04/08/23 16:21 [facility] [id number]) Out-Patient Physical Therapy Visit Information Visit Information Visit Type Initial Evaluation Visit Start Time 14:32 Visit Stop Time 15:59 Visit Number 3 Evaluation Information Evaluation Date 04/02/23 PT-OP-B Current Condition Start: 04/01/23 16:08 Freq: Status: Active Protocol: Document 04/08/23 14:27 SAK (Rec: 04/08/23 16:21 [facility] [id number]) Current Condition History of Current Condition Onset Date 3 years Current Complaints lashaun LE swelling right greater than left History of Current Condition Right SWETA 2005, (left in 2004) . Prior to revision right hip started to get swelling right LE, now has started to increase on the right side. Was wearing pantyhose style 20 -30 mm Hg, but had to go to ER due to BP issue, started wearing socks only. Swelling continues to worsen. Wear compression socks 15-20 knee high, then KT tape upper legs. Does exercises; free weights , gazelle PT-OP-C Subjective Start: 04/01/23 16:08 Freq: Status: Active Protocol: Document 04/08/23 14:27 SAK (Rec: 04/08/23 16:21 [facility] [id number]) OP-PT Subjective Patient Comments Patient Comments Tried compression tights, compression socks and girdle, seems to be working pretty well. REports bandages slid down pretty quickly (within 30 min), will plan to do at night. PT-OP-J Posture/Palpation/Skin Start: 04/01/23 16:08 Freq: Status: Active Protocol: Document 04/02/23 13:43 SAK (Rec: 04/02/23 17:03 [facility] [id number]) Palpation Assessment Location lashaun LE Palpation Details no palpable fibrosis PT-OP-K Range of Motion Start: 04/01/23 16:08 Freq: Status: Active Protocol: Document 04/02/23 13:43 SAK (Rec: 04/02/23 17:03 [facility] [id number]) Hip Goniometric Range of Motion Hip lashaun Hip ROM WFL Yes Knee Goniometric Range of Motion Knee lashaun Knee ROM WFL Yes Ankle and Foot Goniometric Range of Motion Ankle and Foot lashaun Ankle/Foot ROM WFL Yes PT-OP-N Lymphedema Start: 04/01/23 16:08 Freq: Status: Active Protocol: Document 04/08/23 14:27 [facility] (Rec: 04/08/23 16:21 [facility] [id number]) Lymphedema Measurements Lower Extremity Circumference Measurements Right Affected MT Heads 27.9 cm Mid-foot 26.8 cm Medial Malleolus 31.2 cm 10 cm From Medial Malleolus 30.8 cm 20 cm From Medial Malleolus 41.6 cm 30 cm From Medial Malleolus 46.7 cm 40 cm From Medial Malleolus 50.8 cm 50 cm From Medial Malleolus 61.3 cm 60 cm From Medial Malleolus 71 cm 70 cm From Medial Malleolus 79.4 cm Knee Joint 51.8 cm Hip 90 cm Left Affected MT Heads 27.5 cm Mid-foot 28 cm Medial Malleolus 31 cm 10 cm From Medial Malleolus 31.2 cm 20 cm From Medial Malleolus 41.2 cm 30 cm From Medial Malleolus 46.9 cm 40 cm From Medial Malleolus 48.9 cm 50 cm From Medial Malleolus 62.4 cm 60 cm From Medial Malleolus 69.4 cm 70 cm From Medial Malleolus 80.2 cm Knee Joint 48.9 cm Hip 84.2 cm PT-OP-Q Treatments Start: 04/01/23 16:08 Freq: Status: Active Protocol: Document 04/08/23 14:27 [facility] (Rec: 04/08/23 16:21 [facility] [id number]) Lymphedema Treatment Manual Lymphatic Drainage Location for lashaun LE lymphedema Duration 50 Lymphedema Wrapping Materials patient independentlydonned compression socks and girdle, no tights with her today; PT stressed importance of full length compression, she continues to look at options and this was discussed further ; patient considering pantyhose style. Compression Garment Assessment Compression Garment Assessment Details Advised patient that girdle appears tight at groin, may push fluid distally, look for garments with wider band or obtain pantyhose style compression as discussed. PT-OP-T Assessment and Plan Start: 04/01/23 16:08 Freq: Status: Active Protocol: Document 04/08/23 14:27 [facility] (Rec: 04/08/23 16:21 [facility] [id number]) Physical Therapy Assessment Goals Two Impairment activity tolerance Impairment Lymphedema Life Impact Scale 13% [facility] Goal (LTG) Decrease Lymphedema Life impact scale to no greater than 5% as measure of improved activity tolerance, ability to manage her lymphedema, and improved quality of life LTG Duration 07/01/23 One Impairment lymphedema lashaun LE's right greater than left Short Term Goal (STG) Patient will be instructed in all aspects of lymphedema self -care to include skin care, elevation, self-massage, self- bandaging/compression options, and lymphedema exercises. STG Duration 05/01/23 [employer] Inspector [employer] Adjuster Goal (LTG) Decrease patient?s lymphedema to a stable level (no increase or decrease greater than 1 cm over the course of 1 week), patient to be independent with all aspects of self-care for lymphedema, and will obtain appropriate compression garment for lymphedema management in the home. LTG Duration 07/01/23 Assessment Summary Assessment Patient demonstrated good compliance to HEP, self- massage, skin care. Didn't try self-bandaging, tried layering of compression instead but stated she will try bandaging for overnight. Decreased circumferential measurements most regions lashaun LE's. Physical Therapy Plan Frequency and Duration Frequency of Treatment 20 visits Duration of treatment (weeks) 12 Plan of Care Start Date 04/02/23 Plan of Care End Date 07/01/23 Therapeutic Interventions Therapeutic Interventions Home Exercise Program, Lymphedema Management,Manual Therapy,Patient/Caregiver Education,Self-Care/Home Management,Soft Tissue Mobilization,Taping, Therapeutic Activities, Therapeutic Exercises Next Visit Focus/Plan Next Note Type Treatment Note Next Visit Plan Continue CDT. ASsess patient ability to self bandage. Continue patient education regarding compression garment options.
--- NOTE | 2023-04-15 16:17 | PT.OTN ---
Current Diagnoses Lymphedema, not elsewhere classified (04/15/23) Physical Therapy Treatment Note PT-OP-A Visit Information Start: 04/01/23 16:08 Freq: Status: Active Protocol: Document 04/15/23 14:33 SAK (Rec: 04/15/23 16:17 [facility] [id number]) Out-Patient Physical Therapy Visit Information Visit Information Visit Type Initial Evaluation Visit Start Time 14:33 Visit Stop Time 16:00 Visit Number 5 Evaluation Information Evaluation Date 04/02/23 PT-OP-B Current Condition Start: 04/01/23 16:08 Freq: Status: Active Protocol: Document 04/15/23 14:33 SAK (Rec: 04/15/23 16:17 [facility] [id number]) Current Condition History of Current Condition Onset Date 3 years Current Complaints lashaun LE swelling right greater than left History of Current Condition Right SWETA 2005, (left in 2004) . Prior to revision right hip started to get swelling right LE, now has started to increase on the right side. Was wearing pantyhose style 20 -30 mm Hg, but had to go to ER due to BP issue, started wearing socks only. Swelling continues to worsen. Wear compression socks 15-20 knee high, then KT tape upper legs. Does exercises; free weights , gazelle PT-OP-C Subjective Start: 04/01/23 16:08 Freq: Status: Active Protocol: Document 04/15/23 14:33 SAK (Rec: 04/15/23 16:17 [facility] [id number]) OP-PT Subjective Patient Comments Patient Comments WEaring compression tights and socks today. Didn't feel up to bandaging over the weekend. Didn't stick to diet well; made biscuits and gravy, pizza . Forgot compression bandaging at home. PT-OP-J Posture/Palpation/Skin Start: 04/01/23 16:08 Freq: Status: Active Protocol: Document 04/02/23 13:43 SAK (Rec: 04/02/23 17:03 [facility] [id number]) Palpation Assessment Location lashaun LE Palpation Details no palpable fibrosis PT-OP-K Range of Motion Start: 04/01/23 16:08 Freq: Status: Active Protocol: Document 04/02/23 13:43 SAK (Rec: 04/02/23 17:03 [facility] [id number]) Hip Goniometric Range of Motion Hip lashaun Hip ROM WFL Yes Knee Goniometric Range of Motion Knee lashaun Knee ROM WFL Yes Ankle and Foot Goniometric Range of Motion Ankle and Foot lashaun Ankle/Foot ROM WFL Yes PT-OP-N Lymphedema Start: 04/01/23 16:08 Freq: Status: Active Protocol: Document 04/15/23 14:33 [facility] (Rec: 04/15/23 16:17 [facility] [id number]) Lymphedema Measurements Lower Extremity Circumference Measurements Right Affected MT Heads 28.3 cm Mid-foot 27 cm Medial Malleolus 31.8 cm 10 cm From Medial Malleolus 29.8 cm 20 cm From Medial Malleolus 40.9 cm 30 cm From Medial Malleolus 46 cm 40 cm From Medial Malleolus 51.4 cm 50 cm From Medial Malleolus 62 cm 60 cm From Medial Malleolus 72.3 cm 70 cm From Medial Malleolus 82 cm Knee Joint 51.4 cm Hip 89 cm Left Affected MT Heads 27 cm Mid-foot 27.4 cm Medial Malleolus 29 cm 10 cm From Medial Malleolus 30 cm 20 cm From Medial Malleolus 39.3 cm 30 cm From Medial Malleolus 45.7 cm 40 cm From Medial Malleolus 49.8 cm 50 cm From Medial Malleolus 60.3 cm 60 cm From Medial Malleolus 68 cm 70 cm From Medial Malleolus 78 cm Knee Joint 49.8 cm Hip 91.7 cm PT-OP-Q Treatments Start: 04/01/23 16:08 Freq: Status: Active Protocol: Document 04/15/23 14:33 [facility] (Rec: 04/15/23 16:17 [facility] [id number]) Lymphedema Treatment Lymphedema Wrapping Materials patient to self bandage at home; wore compression knee highs and compression tights ( no feet) layered today. Patient Education Compression Garments further discussion Other Review of self bandaging and self MLD, best exercises, use of KT tape for edema reduction . Patient demonstrated good understanding. PT-OP-T Assessment and Plan Start: 04/01/23 16:08 Freq: Status: Active Protocol: Document 04/15/23 14:33 [facility] (Rec: 04/15/23 16:17 [facility] [id number]) Physical Therapy Assessment Goals Two Impairment activity tolerance Impairment Lymphedema Life Impact Scale 13% Residential Energy Auditor Goal (LTG) Decrease Lymphedema Life impact scale to no greater than 5% as measure of improved activity tolerance, ability to manage her lymphedema, and improved quality of life LTG Duration 07/01/23 One Impairment lymphedema lashaun LE's right greater than left Short Term Goal (STG) Patient will be instructed in all aspects of lymphedema self -care to include skin care, elevation, self-massage, self- bandaging/compression options, and lymphedema exercises. STG Duration 05/01/23 Residential Energy Auditor Goal (LTG) Decrease patient?s lymphedema to a stable level (no increase or decrease greater than 1 cm over the course of 1 week), patient to be independent with all aspects of self-care for lymphedema, and will obtain appropriate compression garment for lymphedema management in the home. LTG Duration 07/01/23 Assessment Summary Assessment Continue patient education for self MLD, self-bandaging, exercises instruction. Also shown how to use KT tape as option for edema reduction, and loaned Tribute night garment knee to thigh. Further discussion of layering of bandaging, compression shorts, possible night garment instead of thigh high bandaging. Patient demonstrated good understanding. Most measurements decreased left LE , more sporadic and variable on right. Patient had difficulty self-bandaging; no bandaging done today due to patient forgetting supplies. she will bandage when she gets home. aurelio. Issued Tubigrip sizes G and K to try applying over banding if helpful to keep from sliding down. Physical Therapy Plan Frequency and Duration Frequency of Treatment 20 visits Duration of treatment (weeks) 12 Plan of Care Start Date 04/02/23 Plan of Care End Date 07/01/23 Therapeutic Interventions Therapeutic Interventions Home Exercise Program, Lymphedema Management,Manual Therapy,Patient/Caregiver Education,Self-Care/Home Management,Soft Tissue Mobilization,Taping, Therapeutic Activities, Therapeutic Exercises Next Visit Focus/Plan Next Note Type Treatment Note Next Visit Plan Continue CDT. Compression bandaging again next session, more firm
--- NOTE | 2023-04-17 15:31 | PT.OTN ---
Current Diagnoses Lymphedema, not elsewhere classified (04/17/23) Physical Therapy Treatment Note PT-OP-A Visit Information Start: 04/01/23 16:08 Freq: Status: Active Protocol: Document 04/17/23 14:40 [facility] (Rec: 04/17/23 15:30 [facility] [id number]) Out-Patient Physical Therapy Visit Information Visit Information Visit Type Initial Evaluation Visit Start Time 14:41 Visit Stop Time 16:00 Visit Number 6 Evaluation Information Evaluation Date 04/02/23 PT-OP-B Current Condition Start: 04/01/23 16:08 Freq: Status: Active Protocol: Document 04/17/23 14:40 [facility] (Rec: 04/17/23 15:30 [facility] [id number]) Current Condition History of Current Condition Onset Date 3 years Current Complaints lashaun LE swelling right greater than left History of Current Condition Right SWETA 2005, (left in 2004) . Prior to revision right hip started to get swelling right LE, now has started to increase on the right side. Was wearing pantyhose style 20 -30 mm Hg, but had to go to ER due to BP issue, started wearing socks only. Swelling continues to worsen. Wear compression socks 15-20 knee high, then KT tape upper legs. Does exercises; free weights , gazelle PT-OP-C Subjective Start: 04/01/23 16:08 Freq: Status: Active Protocol: Document 04/17/23 14:40 [facility]AK (Rec: 04/17/23 15:30 [facility] [id number]) OP-PT Subjective Patient Comments Patient Comments Tried night garment, was a little tight but also seemed helpful. Tried bandaging but didn't go well, slid down despite wearing shorts. Didn' t bring bandages today because has to go t PT-OP-J Posture/Palpation/Skin Start: 04/01/23 16:08 Freq: Status: Active Protocol: Document 04/02/23 13:43 [facility]AK (Rec: 04/02/23 17:03 [facility] [id number]) Palpation Assessment Location lashaun LE Palpation Details no palpable fibrosis PT-OP-K Range of Motion Start: 04/01/23 16:08 Freq: Status: Active Protocol: Document 04/02/23 13:43 [facility]AK (Rec: 04/02/23 17:03 [facility] [id number]) Hip Goniometric Range of Motion Hip lashaun Hip ROM WFL Yes Knee Goniometric Range of Motion Knee lashaun Knee ROM WFL Yes Ankle and Foot Goniometric Range of Motion Ankle and Foot lashaun Ankle/Foot ROM WFL Yes PT-OP-N Lymphedema Start: 04/01/23 16:08 Freq: Status: Active Protocol: Document 04/15/23 14:33 [facility] (Rec: 04/15/23 16:17 [facility] [id number]) Lymphedema Measurements Lower Extremity Circumference Measurements Right Affected MT Heads 28.3 cm Mid-foot 27 cm Medial Malleolus 31.8 cm 10 cm From Medial Malleolus 29.8 cm 20 cm From Medial Malleolus 40.9 cm 30 cm From Medial Malleolus 46 cm 40 cm From Medial Malleolus 51.4 cm 50 cm From Medial Malleolus 62 cm 60 cm From Medial Malleolus 72.3 cm 70 cm From Medial Malleolus 82 cm Knee Joint 51.4 cm Hip 89 cm Left Affected MT Heads 27 cm Mid-foot 27.4 cm Medial Malleolus 29 cm 10 cm From Medial Malleolus 30 cm 20 cm From Medial Malleolus 39.3 cm 30 cm From Medial Malleolus 45.7 cm 40 cm From Medial Malleolus 49.8 cm 50 cm From Medial Malleolus 60.3 cm 60 cm From Medial Malleolus 68 cm 70 cm From Medial Malleolus 78 cm Knee Joint 49.8 cm Hip 91.7 cm PT-OP-Q Treatments Start: 04/01/23 16:08 Freq: Status: Active Protocol: Document 04/17/23 14:40 [facility] (Rec: 04/17/23 15:30 [facility] [id number]) Lymphedema Treatment Manual Lymphatic Drainage Location for lashaun LE lymphedema Duration 50 Lymphedema Wrapping Materials patient to self bandage at home; wore compression knee highs and compression tights ( no feet) layered today. Sequential Lymphedema Exercises Comments supine all joints, focus on proximal during MLD. Compression Garment Assessment Compression Garment Assessment Details Patient attempted bandaging at home but had difficulty, c/o continued problems with it sliding down so didn't bring bandaging materials today, instructed to bring next session. More time on ther ex and MLD today, discussion of compression options. Patient would like to go to [facility]. Patient Education Other Review of self bandaging and self MLD, best exercises, use of KT tape for edema reduction . Patient demonstrated good understanding. PT-OP-T Assessment and Plan Start: 04/01/23 16:08 Freq: Status: Active Protocol: Document 04/17/23 14:40 [facility] (Rec: 04/17/23 15:30 [facility] [id number]) Physical Therapy Assessment Goals Two Impairment activity tolerance Impairment Lymphedema Life Impact Scale 13% Vessel Crew Member Goal (LTG) Decrease Lymphedema Life impact scale to no greater than 5% as measure of improved activity tolerance, ability to manage her lymphedema, and improved quality of life LTG Duration 07/01/23 One Impairment lymphedema lashaun LE's right greater than left Short Term Goal (STG) Patient will be instructed in all aspects of lymphedema self -care to include skin care, elevation, self-massage, self- bandaging/compression options, and lymphedema exercises. STG Duration 05/01/23 Snf Goal (LTG) Decrease patient?s lymphedema to a stable level (no increase or decrease greater than 1 cm over the course of 1 week), patient to be independent with all aspects of self-care for lymphedema, and will obtain appropriate compression garment for lymphedema management in the home. LTG Duration 07/01/23 Assessment Summary Assessment No circumferential measurements today, inc time with ther ex and MLD, additional KT tape. Paatient again instructed to bandage at home, wear snug shorts to hold bandages up and attempt to bandage more snuggly. Physical Therapy Plan Frequency and Duration Frequency of Treatment 20 visits Duration of treatment (weeks) 12 Plan of Care Start Date 04/02/23 Plan of Care End Date 07/01/23 Therapeutic Interventions Therapeutic Interventions Home Exercise Program, Lymphedema Management,Manual Therapy,Patient/Caregiver Education,Self-Care/Home Management,Soft Tissue Mobilization,Taping, Therapeutic Activities, Therapeutic Exercises Next Visit Focus/Plan Next Note Type Treatment Note Next Visit Plan Continue CDT. Compression bandaging again next session, more firm. PT to request physician order for compression garments.
--- NOTE | 2023-04-22 16:17 | PT.OTN ---
Current Diagnoses Lymphedema, not elsewhere classified (04/22/23) Physical Therapy Treatment Note PT-OP-A Visit Information Start: 04/01/23 16:08 Freq: Status: Active Protocol: Document 04/22/23 14:24 [facility] (Rec: 04/22/23 16:17 [facility] [id number]) Out-Patient Physical Therapy Visit Information Visit Information Visit Type Initial Evaluation Visit Start Time 14:30 Visit Stop Time 16:05 Visit Number 7 Evaluation Information Evaluation Date 04/02/23 PT-OP-B Current Condition Start: 04/01/23 16:08 Freq: Status: Active Protocol: Document 04/22/23 14:24 [facility] (Rec: 04/22/23 16:17 [facility] [id number]) Current Condition History of Current Condition Onset Date 3 years Current Complaints lashaun LE swelling right greater than left History of Current Condition Right SWETA 2005, (left in 2004) . Prior to revision right hip started to get swelling right LE, now has started to increase on the right side. Was wearing pantyhose style 20 -30 mm Hg, but had to go to ER due to BP issue, started wearing socks only. Swelling continues to worsen. Wear compression socks 15-20 knee high, then KT tape upper legs. Does exercises; free weights , gazelle PT-OP-C Subjective Start: 04/01/23 16:08 Freq: Status: Active Protocol: Document 04/22/23 14:24 [facility] (Rec: 04/22/23 16:17 [facility] [id number]) OP-PT Subjective Patient Comments Patient Comments Did exercises wearing compression tights and socks. Not wearing tights to PT PT-OP-J Posture/Palpation/Skin Start: 04/01/23 16:08 Freq: Status: Active Protocol: Document 04/02/23 13:43 [facility] (Rec: 04/02/23 17:03 [facility] [id number]) Palpation Assessment Location lashaun LE Palpation Details no palpable fibrosis PT-OP-K Range of Motion Start: 04/01/23 16:08 Freq: Status: Active Protocol: Document 04/02/23 13:43 [facility]AK (Rec: 04/02/23 17:03 [facility] [id number]) Hip Goniometric Range of Motion Hip lashaun Hip ROM WFL Yes Knee Goniometric Range of Motion Knee lashaun Knee ROM WFL Yes Ankle and Foot Goniometric Range of Motion Ankle and Foot lashaun Ankle/Foot ROM WFL Yes PT-OP-N Lymphedema Start: 04/01/23 16:08 Freq: Status: Active Protocol: Document 04/22/23 14:24 [facility] (Rec: 04/22/23 16:17 [facility] [id number]) Lymphedema Measurements Lower Extremity Circumference Measurements Right Affected MT Heads 28 cm Mid-foot 26.3 cm Medial Malleolus 32 cm 10 cm From Medial Malleolus 29.6 cm 20 cm From Medial Malleolus 40.6 cm 30 cm From Medial Malleolus 46.4 cm 40 cm From Medial Malleolus 48.6 cm 50 cm From Medial Malleolus 59.8 cm 60 cm From Medial Malleolus 69.3 cm 70 cm From Medial Malleolus 80.3 cm Knee Joint 52 cm Hip 88 cm Left Affected MT Heads 26.9 cm Mid-foot 27.8 cm Medial Malleolus 31.7 cm 10 cm From Medial Malleolus 30.6 cm 20 cm From Medial Malleolus 40.7 cm 30 cm From Medial Malleolus 45.4 cm 40 cm From Medial Malleolus 50.8 cm 50 cm From Medial Malleolus 61.7 cm 60 cm From Medial Malleolus 69.9 cm 70 cm From Medial Malleolus 81.7 cm Knee Joint 50.8 cm Hip 90.5 cm PT-OP-Q Treatments Start: 04/01/23 16:08 Freq: Status: Active Protocol: Document 04/22/23 14:24 [facility] (Rec: 04/22/23 16:17 [facility] [id number]) Cardio Equipment Recumbent Stepper (Sci-Fit) Duration (Minutes) 6 Resistance 1 Seat Position 14 Other to facil lymphatic flow after compression bandaging. Lymphedema Treatment Manual Lymphatic Drainage Location for lashaun LE lymphedema Duration 50 Lymphedema Wrapping Body Location lashaun LE Materials Size G Tricofix, Artiflex, Comprilan toes to upper thigh, stretch shorts (not compressive) to help hold bandaging up Sequential Lymphedema Exercises Comments supine all joints, focus on proximal during MLD. Compression Garment Assessment Compression Garment Assessment Details brought shorts to help hold compression bandaging up but not very compressiive, uncertain will be helpful Patient Education Other only wearing compression socks (knee high) and kinesiotape today. Patient education regarding bandaging during PT bandaging today. PT-OP-T Assessment and Plan Start: 04/01/23 16:08 Freq: Status: Active Protocol: Document 04/22/23 14:24 [facility] (Rec: 04/22/23 16:17 [facility] [id number]) Physical Therapy Assessment Goals Two Impairment activity tolerance Impairment Lymphedema Life Impact Scale 13% Medicine Assistant Goal (LTG) Decrease Lymphedema Life impact scale to no greater than 5% as measure of improved activity tolerance, ability to manage her lymphedema, and improved quality of life LTG Duration 07/01/23 One Impairment lymphedema lashaun LE's right greater than left Short Term Goal (STG) Patient will be instructed in all aspects of lymphedema self -care to include skin care, elevation, self-massage, self- bandaging/compression options, and lymphedema exercises. STG Duration 05/01/23 Alf Goal (LTG) Decrease patient?s lymphedema to a stable level (no increase or decrease greater than 1 cm over the course of 1 week), patient to be independent with all aspects of self-care for lymphedema, and will obtain appropriate compression garment for lymphedema management in the home. LTG Duration 07/01/23 Assessment Summary Assessment circumferential measurements variable today, more decrease in right, more increases in left, reason uncertain. Trial bandaging lashaun LEs as patient brought all bandages, instructed for 23 hrs per day next couple days, come bandaged to next appointment to see if got reduction. Physical Therapy Plan Frequency and Duration Frequency of Treatment 20 visits Duration of treatment (weeks) 12 Plan of Care Start Date 04/02/23 Plan of Care End Date 07/01/23 Therapeutic Interventions Therapeutic Interventions Home Exercise Program, Lymphedema Management,Manual Therapy,Patient/Caregiver Education,Self-Care/Home Management,Soft Tissue Mobilization,Taping, Therapeutic Activities, Therapeutic Exercises Next Visit Focus/Plan Next Note Type Treatment Note Next Visit Plan Continue CDT. Compression bandaging again next session, more firm.
--- NOTE | 2023-04-24 16:02 | PT.OTN ---
Current Diagnoses Lymphedema, not elsewhere classified (04/24/23) Physical Therapy Treatment Note PT-OP-A Visit Information Start: 04/01/23 16:08 Freq: Status: Active Protocol: Document 04/24/23 14:33 [facility] (Rec: 04/24/23 16:01 [facility] [id number]) Out-Patient Physical Therapy Visit Information Visit Information Visit Type Initial Evaluation Visit Start Time 14:34 Visit Stop Time 16:05 Visit Number 8 Evaluation Information Evaluation Date 04/02/23 PT-OP-B Current Condition Start: 04/01/23 16:08 Freq: Status: Active Protocol: Document 04/24/23 14:33 [facility] (Rec: 04/24/23 16:01 [facility] [id number]) Current Condition History of Current Condition Onset Date 3 years Current Complaints lashaun LE swelling right greater than left History of Current Condition Right SWETA 2005, (left in 2004) . Prior to revision right hip started to get swelling right LE, now has started to increase on the right side. Was wearing pantyhose style 20 -30 mm Hg, but had to go to ER due to BP issue, started wearing socks only. Swelling continues to worsen. Wear compression socks 15-20 knee high, then KT tape upper legs. Does exercises; free weights , gazelle PT-OP-C Subjective Start: 04/01/23 16:08 Freq: Status: Active Protocol: Document 04/24/23 14:33 [facility] (Rec: 04/24/23 16:01 [facility] [id number]) OP-PT Subjective Patient Comments Patient Comments Even with shorts compression bandaging slid down. Has been wearing compression tights and socks since last seen. Didn't bring bandages back today. PT-OP-J Posture/Palpation/Skin Start: 04/01/23 16:08 Freq: Status: Active Protocol: Document 04/02/23 13:43 [facility] (Rec: 04/02/23 17:03 [facility] [id number]) Palpation Assessment Location lashaun LE Palpation Details no palpable fibrosis PT-OP-K Range of Motion Start: 04/01/23 16:08 Freq: Status: Active Protocol: Document 04/02/23 13:43 [facility] (Rec: 04/02/23 17:03 [facility] [id number]) Hip Goniometric Range of Motion Hip lashaun Hip ROM WFL Yes Knee Goniometric Range of Motion Knee lashaun Knee ROM WFL Yes Ankle and Foot Goniometric Range of Motion Ankle and Foot lashaun Ankle/Foot ROM WFL Yes PT-OP-N Lymphedema Start: 04/01/23 16:08 Freq: Status: Active Protocol: Document 04/24/23 14:33 [facility] (Rec: 04/24/23 16:01 [facility] [id number]) Lymphedema Measurements Lower Extremity Circumference Measurements Right Affected MT Heads 26.2 cm Mid-foot 27.2 cm Medial Malleolus 30.2 cm 10 cm From Medial Malleolus 29.4 cm 20 cm From Medial Malleolus 39.8 cm 30 cm From Medial Malleolus 45.5 cm 40 cm From Medial Malleolus 48.2 cm 50 cm From Medial Malleolus 59.3 cm 60 cm From Medial Malleolus 68.3 cm 70 cm From Medial Malleolus 79 cm Knee Joint 48.2 cm Hip 86.5 cm Left Affected MT Heads 27 cm Mid-foot 27.7 cm Medial Malleolus 30 cm 10 cm From Medial Malleolus 29 cm 20 cm From Medial Malleolus 40.7 cm 30 cm From Medial Malleolus 45.3 cm 40 cm From Medial Malleolus 49.6 cm 50 cm From Medial Malleolus 61 cm 60 cm From Medial Malleolus 69.5 cm 70 cm From Medial Malleolus 80.6 cm Knee Joint 49.6 cm Hip 87.5 cm PT-OP-Q Treatments Start: 04/01/23 16:08 Freq: Status: Active Protocol: Document 04/24/23 14:33 [facility] (Rec: 04/24/23 16:01 [facility] [id number]) Cardio Equipment Recumbent Stepper (Sci-Fit) Other held today, patient already did HEP Lymphedema Treatment Manual Lymphatic Drainage Location for lashaun LE lymphedema Duration 50 Lymphedema Wrapping Other patient donned compression knee highs and compression tights Sequential Lymphedema Exercises Comments isometric hips and abdominals during treatment Compression Garment Assessment Compression Garment Assessment Details as above, shorts not adequate to hold compression bandaging up. Recommended to patient that she bandage just at night at home Patient Education Other shown options for donning aids ; PT marilee love patient donning bermudez for trial at home. further discussion of exercise include possible benefits of using vibration plate PT-OP-T Assessment and Plan Start: 04/01/23 16:08 Freq: Status: Active Protocol: Document 04/24/23 14:33 [facility] (Rec: 04/24/23 16:01 [facility] [id number]) Physical Therapy Assessment Goals Two Impairment activity tolerance Impairment Lymphedema Life Impact Scale 13% [facility] Goal (LTG) Decrease Lymphedema Life impact scale to no greater than 5% as measure of improved activity tolerance, ability to manage her lymphedema, and improved quality of life LTG Duration 07/01/23 One Impairment lymphedema lashaun LE's right greater than left Short Term Goal (STG) Patient will be instructed in all aspects of lymphedema self -care to include skin care, elevation, self-massage, self- bandaging/compression options, and lymphedema exercises. STG Duration 05/01/23 [facility] Goal (LTG) Decrease patient?s lymphedema to a stable level (no increase or decrease greater than 1 cm over the course of 1 week), patient to be independent with all aspects of self-care for lymphedema, and will obtain appropriate compression garment for lymphedema management in the home. LTG Duration 07/01/23 Assessment Summary Assessment Decreased circumferential measurements noted today; more consistent wearing of both compression tights and stockings and increased exercise at home plus focusing on anti-inflammatory diet. Patient instructed to do bandaging at night only due to continued issues with them sliding down, and to make appointment with [facility] for fitting of compression. Physical Therapy Plan Frequency and Duration Frequency of Treatment 20 visits Duration of treatment (weeks) 12 Plan of Care Start Date 04/02/23 Plan of Care End Date 07/01/23 Therapeutic Interventions Therapeutic Interventions Home Exercise Program, Lymphedema Management,Manual Therapy,Patient/Caregiver Education,Self-Care/Home Management,Soft Tissue Mobilization,Taping, Therapeutic Activities, Therapeutic Exercises Next Visit Focus/Plan Next Note Type Treatment Note Next Visit Plan Patient to bandage at night, wear layered compression during the day, continue exercise, MLD, skin care.
--- NOTE | 2023-04-29 15:38 | PT.OTN ---
Current Diagnoses Lymphedema, not elsewhere classified (04/29/23) Physical Therapy Treatment Note PT-OP-A Visit Information Start: 04/01/23 16:08 Freq: Status: Active Protocol: Document 04/29/23 14:25 SAK (Rec: 04/29/23 15:07 [facility] [id number]) Out-Patient Physical Therapy Visit Information Visit Information Visit Type Treatment Note Visit Start Time 14:30 Visit Stop Time 16:00 Visit Number 9 Evaluation Information Evaluation Date 04/02/23 PT-OP-B Current Condition Start: 04/01/23 16:08 Freq: Status: Active Protocol: Document 04/29/23 14:25 SAK (Rec: 04/29/23 15:07 [facility] [id number]) Current Condition History of Current Condition Onset Date 3 years Current Complaints lashaun LE swelling right greater than left History of Current Condition Right SWETA 2005, (left in 2004) . Prior to revision right hip started to get swelling right LE, now has started to increase on the right side. Was wearing pantyhose style 20 -30 mm Hg, but had to go to ER due to BP issue, started wearing socks only. Swelling continues to worsen. Wear compression socks 15-20 knee high, then KT tape upper legs. Does exercises; free weights , gazelle PT-OP-C Subjective Start: 04/01/23 16:08 Freq: Status: Active Protocol: Document 04/29/23 14:25 SAK (Rec: 04/29/23 15:07 [facility] [id number]) OP-PT Subjective Patient Comments Patient Comments Reports tried bandaging knees to hips at night, still had difficulty with the bandages sliding down even though in bed, didn't get much sleep. Did her exercises this am, looked at vibration plate. Didn't go to the gym. Noting some pants fitting looser. PT-OP-J Posture/Palpation/Skin Start: 04/01/23 16:08 Freq: Status: Active Protocol: Document 04/02/23 13:43 SAK (Rec: 04/02/23 17:03 [facility] [id number]) Palpation Assessment Location lashaun LE Palpation Details no palpable fibrosis PT-OP-K Range of Motion Start: 04/01/23 16:08 Freq: Status: Active Protocol: Document 04/02/23 13:43 SAK (Rec: 04/02/23 17:03 [facility] [id number]) Hip Goniometric Range of Motion Hip lashaun Hip ROM WFL Yes Knee Goniometric Range of Motion Knee lashaun Knee ROM WFL Yes Ankle and Foot Goniometric Range of Motion Ankle and Foot lashaun Ankle/Foot ROM WFL Yes PT-OP-N Lymphedema Start: 04/01/23 16:08 Freq: Status: Active Protocol: Document 04/29/23 14:25 [facility] (Rec: 04/29/23 15:07 [facility] [id number]) Lymphedema Measurements Lower Extremity Circumference Measurements Right Affected MT Heads 28.5 cm Mid-foot 27 cm Medial Malleolus 31 cm 10 cm From Medial Malleolus 30.2 cm 20 cm From Medial Malleolus 40.6 cm 30 cm From Medial Malleolus 46.1 cm 40 cm From Medial Malleolus 49 cm 50 cm From Medial Malleolus 60.5 cm 60 cm From Medial Malleolus 70.9 cm 70 cm From Medial Malleolus 81 cm Knee Joint 49 cm Hip 90 cm Left Affected MT Heads 27.3 cm Mid-foot 28 cm Medial Malleolus 30.5 cm 10 cm From Medial Malleolus 30.3 cm 20 cm From Medial Malleolus 40.2 cm 30 cm From Medial Malleolus 45.2 cm 40 cm From Medial Malleolus 50.3 cm 50 cm From Medial Malleolus 61.7 cm 60 cm From Medial Malleolus 69.7 cm 70 cm From Medial Malleolus 80.3 cm Knee Joint 50.3 cm Hip 86.3 cm PT-OP-Q Treatments Start: 04/01/23 16:08 Freq: Status: Active Protocol: Document 04/29/23 14:25 [facility] (Rec: 04/29/23 15:07 [facility] [id number]) Cardio Equipment Recumbent Stepper (Sci-Fit) Duration (Minutes) 10 Resistance 1.5 Seat Position 12 Other to facil lymphatic flow after compression bandaging. Lymphedema Treatment Manual Lymphatic Drainage Location for lashaun LE lymphedema Duration 50 Lymphedema Wrapping Other patient donned compression knee highs and compression tights Sequential Lymphedema Exercises Comments isometric hips and abdominals during treatment Compression Garment Assessment Compression Garment Assessment Details patient to call and make appointment for consult regarding compression pantyhose. Patient Education Other use of bermudez donning aid; further education/review of use, practice with PT guidance today. PT-OP-T Assessment and Plan Start: 04/01/23 16:08 Freq: Status: Active Protocol: Document 04/29/23 14:25 [facility] (Rec: 04/29/23 15:07 [facility] [id number]) Physical Therapy Assessment Goals Two Impairment activity tolerance Impairment Lymphedema Life Impact Scale 13% Group Home Goal (LTG) Decrease Lymphedema Life impact scale to no greater than 5% as measure of improved activity tolerance, ability to manage her lymphedema, and improved quality of life LTG Duration 07/01/23 One Impairment lymphedema lashaun LE's right greater than left Short Term Goal (STG) Patient will be instructed in all aspects of lymphedema self -care to include skin care, elevation, self-massage, self- bandaging/compression options, and lymphedema exercises. STG Duration 05/01/23 Group Home Goal (LTG) Decrease patient?s lymphedema to a stable level (no increase or decrease greater than 1 cm over the course of 1 week), patient to be independent with all aspects of self-care for lymphedema, and will obtain appropriate compression garment for lymphedema management in the home. LTG Duration 07/01/23 Assessment Summary Assessment Circumferential measurements stabilizing. Patient continues to have difficulty with bandaging, even at night. Encouraged to try again until fit with new compression garments. Feel she will benefit from sequential pneumatic pump for part of her self care in the home. Physical Therapy Plan Frequency and Duration Frequency of Treatment 20 visits Duration of treatment (weeks) 12 Plan of Care Start Date 04/02/23 Plan of Care End Date 07/01/23 Therapeutic Interventions Therapeutic Interventions Home Exercise Program, Lymphedema Management,Manual Therapy,Patient/Caregiver Education,Self-Care/Home Management,Soft Tissue Mobilization,Taping, Therapeutic Activities, Therapeutic Exercises Next Visit Focus/Plan Next Note Type Treatment Note Next Visit Plan Patient to make appointment with [facility] for measurement regarding compression garments . Patient to bandage at night , wear layered compression during the day, continue exercise, MLD, skin care. Request pneumatic sequential pump.
--- NOTE | 2023-05-01 14:29 | PT.OPPN ---
Current Diagnoses Lymphedema, not elsewhere classified (06/05/23) Physical Therapy Progress Note PT-OP-A Visit Information Start: 04/01/23 16:08 Freq: Status: Active Protocol: Document 05/01/23 14:31 SAK (Rec: 05/01/23 15:24 [facility] [id number]) Out-Patient Physical Therapy Visit Information Visit Information Visit Type Treatment Note Visit Start Time 14:32 Visit Stop Time 16:00 Visit Number 10 Evaluation Information Evaluation Date 04/02/23 PT-OP-B Current Condition Start: 04/01/23 16:08 Freq: Status: Active Protocol: Document 05/01/23 14:31 SAK (Rec: 05/01/23 15:24 [facility] [id number]) Current Condition History of Current Condition Onset Date 3 years Current Complaints lashaun LE swelling right greater than left History of Current Condition Right SWETA 2005, (left in 2004) . Prior to revision right hip started to get swelling right LE, now has started to increase on the right side. Was wearing pantyhose style 20 -30 mm Hg, but had to go to ER due to BP issue, started wearing socks only. Swelling continues to worsen. Wear compression socks 15-20 knee high, then KT tape upper legs. Does exercises; free weights , gazelle PT-OP-C Subjective Start: 04/01/23 16:08 Freq: Status: Active Protocol: Document 05/01/23 14:31 SAK (Rec: 05/01/23 15:24 [facility] [id number]) OP-PT Subjective Patient Comments Patient Comments Wore the pantyhose compression rest of last day, took off bedtime. Tried bandaging again at night nights proximally but only lasted 4 hours. PT-OP-J Posture/Palpation/Skin Start: 04/01/23 16:08 Freq: Status: Active Protocol: Document 04/02/23 13:43 SAK (Rec: 04/02/23 17:03 [facility] [id number]) Palpation Assessment Location lashaun LE Palpation Details no palpable fibrosis PT-OP-K Range of Motion Start: 04/01/23 16:08 Freq: Status: Active Protocol: Document 04/02/23 13:43 SAK (Rec: 04/02/23 17:03 [facility] [id number]) Hip Goniometric Range of Motion Hip Measured in Degrees lashaun Hip ROM WFL Yes Knee Goniometric Range of Motion Knee Measured in Degrees lashaun Knee ROM WFL Yes Ankle and Foot Goniometric Range of Motion Ankle and Foot Measured in Degrees lashaun Ankle/Foot ROM WFL Yes PT-OP-N Lymphedema Start: 04/01/23 16:08 Freq: Status: Active Protocol: Document 05/01/23 14:31 [facility] (Rec: 05/01/23 15:24 [facility] [id number]) Lymphedema Measurements Lower Extremity Circumference Measurements Right Affected MT Heads 27 cm Mid-foot 27.1 cm Medial Malleolus 30.4 cm 10 cm From Medial Malleolus 30 cm 20 cm From Medial Malleolus 39.6 cm 30 cm From Medial Malleolus 46 cm 40 cm From Medial Malleolus 45.9 cm 50 cm From Medial Malleolus 60.2 cm 60 cm From Medial Malleolus 70.6 cm 70 cm From Medial Malleolus 81 cm Knee Joint 45.9 cm Left Affected MT Heads 27.4 cm Mid-foot 28 cm Medial Malleolus 30.5 cm 10 cm From Medial Malleolus 30.5 cm 20 cm From Medial Malleolus 41.2 cm 30 cm From Medial Malleolus 44.8 cm 40 cm From Medial Malleolus 50.9 cm 50 cm From Medial Malleolus 60.6 cm 60 cm From Medial Malleolus 68.6 cm 70 cm From Medial Malleolus 81.3 cm Knee Joint 50.9 cm Hip 86.5 cm PT-OP-T Assessment and Plan Start: 04/01/23 16:08 Freq: Status: Active Protocol: Document 05/01/23 14:31 [facility] (Rec: 05/01/23 15:24 [facility] [id number]) Physical Therapy Assessment Rehab Potential Rehabilitation Potential Good Goals Two Impairment activity tolerance Impairment Lymphedema Life Impact Scale 13% Support Services Tech Goal (LTG) Decrease Lymphedema Life impact scale to no greater than 5% as measure of improved activity tolerance, ability to manage her lymphedema, and improved quality of life 05/01/23: goal progress, jan to LTG Duration 07/01/23 One Impairment lymphedema lashaun LE's right greater than left Short Term Goal (STG) Patient will be instructed in all aspects of lymphedema self -care to include skin care, elevation, self-massage, self- bandaging/compression options, and lymphedema exercises. 05/01/23: goal met STG Duration goal met Support Services Tech Goal (LTG) Decrease patient?s lymphedema to a stable level (no increase or decrease greater than 1 cm over the course of 1 week), patient to be independent with all aspects of self-care for lymphedema, and will obtain appropriate compression garment for lymphedema management in the home. LTG Duration 07/01/23 Assessment Summary Assessment Patient has completed 30 days of conservative lymphedema care for her bilateral LE lymphedema including skin care , elevation, manual lymphatic drainage, lymphedema exercises , and compression. She is currently layering knee high compression and compression tights. She bandages LE's at night. She has an appointment for consult regarding pantyhose style compression garments. Despite being highly compliant to all aspects of lymphedema care patient has difficulty managing her lymphedema. She has benefited from trial use of sequential pneumatic pump in PT session. Feel she would benefit highly from a lymphedema pump for home use to help her manage her lymphedema and prevent potential complications such as cellulitis. Due to distribution of lymphedema ( appears lipolymphedema-type) in upper thighs, hips, and buttocks feel she needs the pants garment for lymphedema pump for best results. She is interested in pursuing this . Physical Therapy Plan Frequency and Duration Frequency of Treatment 20 visits Duration of treatment (weeks) 12 Plan of Care Start Date 04/02/23 Plan of Care End Date 07/01/23 Therapeutic Interventions Therapeutic Interventions Home Exercise Program, Lymphedema Management,Manual Therapy,Patient/Caregiver Education,Self-Care/Home Management,Soft Tissue Mobilization,Taping, Therapeutic Activities, Therapeutic Exercises Next Visit Focus/Plan Next Note Type Treatment Note Next Visit Plan Continue CDT. Evaluate any new compression garments obrtained by patient after consult. Assist patient in obtaining sequential pneumatic pump for home use.
--- NOTE | 2023-05-01 15:25 | PT.OTN ---
Current Diagnoses Lymphedema, not elsewhere classified (05/01/23) Physical Therapy Treatment Note PT-OP-A Visit Information Start: 04/01/23 16:08 Freq: Status: Active Protocol: Document 05/01/23 14:31 [facility]AK (Rec: 05/01/23 15:[address] [facility] [id number]) Out-Patient Physical Therapy Visit Information Visit Information Visit Type Treatment Note Visit Start Time 14:32 Visit Stop Time 16:00 Visit Number 10 Evaluation Information Evaluation Date 04/02/23 PT-OP-B Current Condition Start: 04/01/23 16:08 Freq: Status: Active Protocol: Document 05/01/23 14:31 [facility]AK (Rec: 05/01/23 15:[address] [facility] [id number]) Current Condition History of Current Condition Onset Date 3 years Current Complaints lashaun LE swelling right greater than left History of Current Condition Right SWETA 2005, (left in 2004) . Prior to revision right hip started to get swelling right LE, now has started to increase on the right side. Was wearing pantyhose style 20 -30 mm Hg, but had to go to ER due to BP issue, started wearing socks only. Swelling continues to worsen. Wear compression socks 15-20 knee high, then KT tape upper legs. Does exercises; free weights , gazelle PT-OP-C Subjective Start: 04/01/23 16:08 Freq: Status: Active Protocol: Document 05/01/23 14:31 [facility]AK (Rec: 05/01/23 15:[address] [facility] [id number]) OP-PT Subjective Patient Comments Patient Comments Wore the pantyhose compression rest of last day, took off bedtime. Tried bandaging again at night nights proximally but only lasted 4 hours. PT-OP-J Posture/Palpation/Skin Start: 04/01/23 16:08 Freq: Status: Active Protocol: Document 04/02/23 13:43 [facility]AK (Rec: 04/02/23 17:[address] [facility] [id number]) Palpation Assessment Location lashaun LE Palpation Details no palpable fibrosis PT-OP-K Range of Motion Start: 04/01/23 16:08 Freq: Status: Active Protocol: Document 04/02/23 13:43 [facility]AK (Rec: 04/02/23 17:[address] [facility] [id number]) Hip Goniometric Range of Motion Hip lashaun Hip ROM WFL Yes Knee Goniometric Range of Motion Knee lashaun Knee ROM WFL Yes Ankle and Foot Goniometric Range of Motion Ankle and Foot lashaun Ankle/Foot ROM WFL Yes PT-OP-N Lymphedema Start: 04/01/23 16:08 Freq: Status: Active Protocol: Document 05/01/23 14:[address] [facility] (Rec: 05/01/23 15:[address] [facility] [id number]) Lymphedema Measurements Lower Extremity Circumference Measurements Right Affected MT Heads 27 cm Mid-foot 27.1 cm Medial Malleolus 30.4 cm 10 cm From Medial Malleolus 30 cm 20 cm From Medial Malleolus 39.6 cm 30 cm From Medial Malleolus 46 cm 40 cm From Medial Malleolus 45.9 cm 50 cm From Medial Malleolus 60.2 cm 60 cm From Medial Malleolus 70.6 cm 70 cm From Medial Malleolus 81 cm Knee Joint 45.9 cm Left Affected MT Heads 27.4 cm Mid-foot 28 cm Medial Malleolus 30.5 cm 10 cm From Medial Malleolus 30.5 cm 20 cm From Medial Malleolus 41.2 cm 30 cm From Medial Malleolus 44.8 cm 40 cm From Medial Malleolus 50.9 cm 50 cm From Medial Malleolus 60.6 cm 60 cm From Medial Malleolus 68.6 cm 70 cm From Medial Malleolus 81.3 cm Knee Joint 50.9 cm Hip 86.5 cm PT-OP-Q Treatments Start: 04/01/23 16:08 Freq: Status: Active Protocol: Document 05/01/23 14:[address] [facility] (Rec: 05/01/23 15:[address] [facility] [id number]) Lymphedema Treatment Manual Lymphatic Drainage Location for lashaun LE lymphedema Duration 50 Lymphedema Wrapping Other patient donned compression knee highs and compression tights, bandaging at night Sequential Lymphedema Exercises Comments isometric hips and abdominals during treatment, doing HEP consistently Compression Garment Assessment Compression Garment Assessment Details Patient has made appointment for new consult regarding compression garments. Patient Education Other Patient may need a donning aid , educated last session with leopoldo bermudez. PT-OP-T Assessment and Plan Start: 04/01/23 16:08 Freq: Status: Active Protocol: Document 05/01/23 14:[address] [facility] (Rec: 05/01/23 15:[address] [facility] [id number]) Physical Therapy Assessment Rehab Potential Rehabilitation Potential Good Goals Two Impairment activity tolerance Impairment Lymphedema Life Impact Scale 13% Dock Attendant Goal (LTG) Decrease Lymphedema Life impact scale to no greater than 5% as measure of improved activity tolerance, ability to manage her lymphedema, and improved quality of life 05/01/23: goal progress, dec to 9 LTG Duration 07/01/23 One Impairment lymphedema lashaun LE's right greater than left Short Term Goal (STG) Patient will be instructed in all aspects of lymphedema self -care to include skin care, elevation, self-massage, self- bandaging/compression options, and lymphedema exercises. 05/01/23: goal met STG Duration goal met Dock Attendant Goal (LTG) Decrease patient?s lymphedema to a stable level (no increase or decrease greater than 1 cm over the course of 1 week), patient to be independent with all aspects of self-care for lymphedema, and will obtain appropriate compression garment for lymphedema management in the home. LTG Duration 07/01/23 Assessment Summary Assessment Patient has completed 30 days of conservative lymphedema care for her bilateral LE lymphedema including skin care , elevation, manual lymphatic drainage, lymphedema exercises , and compression. She is currently layering knee high compression and compression tights. She bandages LE's at night. She has an appointment for consult regarding pantyhose style compression garments. Despite being highly compliant to all aspects of lymphedema care patient has difficulty managing her lymphedema. She has benefited from trial use of sequential pneumatic pump in PT session. Feel she would benefit highly from a lymphedema pump for home use to help her manage her lymphedema and prevent potential complications such as cellulitis. Due to distribution of lymphedema ( appears lipolymphedema-type) in upper thighs, hips, and buttocks feel she needs the pants garment for lymphedema pump for best results. She is interested in pursuing this . Physical Therapy Plan Frequency and Duration Frequency of Treatment 20 visits Duration of treatment (weeks) 12 Plan of Care Start Date 04/02/23 Plan of Care End Date 07/01/23 Therapeutic Interventions Therapeutic Interventions Home Exercise Program, Lymphedema Management,Manual Therapy,Patient/Caregiver Education,Self-Care/Home Management,Soft Tissue Mobilization,Taping, Therapeutic Activities, Therapeutic Exercises Next Visit Focus/Plan Next Note Type Treatment Note Next Visit Plan Continue CDT. Evaluate any new compression garments obrtained by patient after consult. Assist patient in obtaining sequential pneumatic pump for home use.
--- NOTE | 2023-06-05 15:51 | PT.OTN ---
Current Diagnoses Lymphedema, not elsewhere classified (06/05/23) Physical Therapy Treatment Note PT-OP-A Visit Information Start: 04/01/23 16:08 Freq: Status: Active Protocol: Document 06/05/23 14:30 SAK (Rec: 06/05/23 15:51 [facility] [id number]) Out-Patient Physical Therapy Visit Information Visit Information Visit Type Treatment Note Visit Start Time 14:32 Visit Stop Time 16:00 Visit Number 11 Evaluation Information Evaluation Date 04/02/23 PT-OP-B Current Condition Start: 04/01/23 16:08 Freq: Status: Active Protocol: Document 06/05/23 14:30 SAK (Rec: 06/05/23 15:51 [facility] [id number]) Current Condition History of Current Condition Onset Date 3 years Current Complaints lashaun LE swelling right greater than left History of Current Condition Right SWETA 2005, (left in 2004) . Prior to revision right hip started to get swelling right LE, now has started to increase on the right side. Was wearing pantyhose style 20 -30 mm Hg, but had to go to ER due to BP issue, started wearing socks only. Swelling continues to worsen. Wear compression socks 15-20 knee high, then KT tape upper legs. Does exercises; free weights , gazelle PT-OP-C Subjective Start: 04/01/23 16:08 Freq: Status: Active Protocol: Document 06/05/23 14:30 SAK (Rec: 06/05/23 15:51 [facility] [id number]) OP-PT Subjective Patient Comments Patient Comments Wearing pantyhose compression stockings 20-30 mm Hg with good tolerance though takes 20 min to get on. Trying to bandage just thighs at night with compression shorts to hold bandages up. PT-OP-J Posture/Palpation/Skin Start: 04/01/23 16:08 Freq: Status: Active Protocol: Document 04/02/23 13:43 SAK (Rec: 04/02/23 17:03 [facility] [id number]) Palpation Assessment Location lashaun LE Palpation Details no palpable fibrosis PT-OP-K Range of Motion Start: 04/01/23 16:08 Freq: Status: Active Protocol: Document 04/02/23 13:43 SAK (Rec: 04/02/23 17:03 [facility]AK [id number]) Hip Goniometric Range of Motion Hip lashaun Hip ROM WFL Yes Knee Goniometric Range of Motion Knee lashaun Knee ROM WFL Yes Ankle and Foot Goniometric Range of Motion Ankle and Foot lashaun Ankle/Foot ROM WFL Yes PT-OP-N Lymphedema Start: 04/01/23 16:08 Freq: Status: Active Protocol: Document 06/05/23 14:30 [facility] (Rec: 06/05/23 15:51 [facility] [id number]) Lymphedema Measurements Lower Extremity Circumference Measurements Right Affected MT Heads 28.1 cm Mid-foot 27.5 cm Medial Malleolus 30.8 cm 10 cm From Medial Malleolus 29.5 cm 20 cm From Medial Malleolus 40.7 cm 30 cm From Medial Malleolus 46.4 cm 40 cm From Medial Malleolus 49.7 cm 50 cm From Medial Malleolus 61.9 cm 60 cm From Medial Malleolus 70.1 cm 70 cm From Medial Malleolus 82.8 cm Knee Joint 49.7 cm Hip 90 cm Left Affected MT Heads 27.2 cm Mid-foot 28.3 cm Medial Malleolus 30.1 cm 10 cm From Medial Malleolus 29.8 cm 20 cm From Medial Malleolus 40.7 cm 30 cm From Medial Malleolus 45.9 cm 40 cm From Medial Malleolus 50.8 cm 50 cm From Medial Malleolus 60.7 cm 60 cm From Medial Malleolus 70 cm 70 cm From Medial Malleolus 70.8 cm Knee Joint 50.8 cm Hip 91 cm PT-OP-Q Treatments Start: 04/01/23 16:08 Freq: Status: Active Protocol: Document 06/05/23 14:30 [facility] (Rec: 06/05/23 15:51 [facility] [id number]) Cardio Equipment Recumbent Stepper (Sci-Fit) Duration (Minutes) 10 Resistance 1.5 Seat Position 12 Other to facil lymphatic flow after compression bandaging. Lymphedema Treatment Manual Lymphatic Drainage Location for lashaun LE lymphedema Duration 50 Comments supine and sidelying. Lymphedema Wrapping Other patient donned compression knee highs and compression tights, bandaging at night Sequential Lymphedema Exercises Comments isometric hips and abdominals during treatment, doing HEP consistently Compression Garment Assessment Compression Garment Assessment Details Patient wearing prior compression 20-30 mm Hg, discussed Other Other education regarding lipedema and PT feeling that is what patient has with mild underlying lymphedema. Given information including doctor for online consult. PT-OP-T Assessment and Plan Start: 04/01/23 16:08 Freq: Status: Active Protocol: Document 06/05/23 14:30 [facility] (Rec: 06/05/23 15:51 [facility] [id number]) Physical Therapy Assessment Goals Two Impairment activity tolerance Impairment Lymphedema Life Impact Scale 13% Public Health Analyst Goal (LTG) Decrease Lymphedema Life impact scale to no greater than 5% as measure of improved activity tolerance, ability to manage her lymphedema, and improved quality of life 05/01/23: goal progress, dec to 9 LTG Duration 07/01/23 One Impairment lymphedema lashaun LE's right greater than left Short Term Goal (STG) Patient will be instructed in all aspects of lymphedema self -care to include skin care, elevation, self-massage, self- bandaging/compression options, and lymphedema exercises. 05/01/23: goal met STG Duration goal met Half-Way Goal (LTG) Decrease patient?s lymphedema to a stable level (no increase or decrease greater than 1 cm over the course of 1 week), patient to be independent with all aspects of self-care for lymphedema, and will obtain appropriate compression garment for lymphedema management in the home. LTG Duration 07/01/23 Assessment Summary Assessment Min change in circumferential measurements. 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 Patient educated on lipedema and encouraged to do free consult with Dr. Perez in [place]. Physical Therapy Plan Frequency and Duration Frequency of Treatment 20 visits Duration of treatment (weeks) 12 Plan of Care Start Date 04/02/23 Plan of Care End Date 07/01/23 Therapeutic Interventions Therapeutic Interventions Home Exercise Program, Lymphedema Management,Manual Therapy,Patient/Caregiver Education,Self-Care/Home Management,Soft Tissue Mobilization,Taping, Therapeutic Activities, Therapeutic Exercises Next Visit Focus/Plan Next Note Type Treatment Note Next Visit Plan PT to contact [employer] again regarding sequential pneumatic pump, continue CLT.
--- NOTE | 2023-07-18 15:32 | PT.OTRE ---
Current Diagnoses Lymphedema, not elsewhere classified (07/18/23) Past Medical History (Last Reviewed 06/21/20 @ 18:28 by Shawn Ching MD) Bleeding hemorrhoids Chronic back pain GERD (gastroesophageal reflux disease) HLD (hyperlipidemia) HTN (hypertension) Injury of left foot Leukopenia Osteoarthritis Right shoulder strain Uterine fibroid Surgical History (Last Reviewed 06/21/20 @ 18:28 by Shawn Ching MD) History of bilateral total hip arthroplasty (2004) History of bunionectomy History of section History of endometrial ablation (1999) History of hysterectomy (2014) History of removal of skin mole (2018) History of surgery (2018) Hx of cholecystectomy Hx of removal of cyst S/P skin biopsy (08/21/19) Visit Care Team Role Provider Type Tia Diaz MD Family Provider Non-Staff Primary Care Provider Specialty: Medical Address: [address] [place] [address], [id number] Email: KARLOS Mendoza Attending Provider Non-Staff Referring Provider Specialty: Nursing Address: [address] [place] [address], [id number] Email: Physical Therapy Re-Evaluation PT-OP-A Visit Information Start: 04/01/23 16:08 Freq: Status: Active Protocol: Document 07/18/23 14:25 [facility] (Rec: 07/18/23 15:29 [facility] [id number]) Out-Patient Physical Therapy Visit Information Visit Information Visit Type Treatment Note Visit Start Time 14:30 Visit Stop Time 16:00 Visit Number 12 Evaluation Information Evaluation Date 04/02/23 PT-OP-B Current Condition Start: 04/01/23 16:08 Freq: Status: Active Protocol: Document 07/18/23 14:25 SAK (Rec: 07/18/23 15:29 [facility] [id number]) Current Condition History of Current Condition Onset Date 3 years Current Complaints lashaun LE swelling right greater than left History of Current Condition Right SWETA 2005, (left in 2004) . Prior to revision right hip started to get swelling right LE, now has started to increase on the right side. Was wearing pantyhose style 20 -30 mm Hg, but had to go to ER due to BP issue, started wearing socks only. Swelling continues to worsen. Wear compression socks 15-20 knee high, then KT tape upper legs. Does exercises; free weights , gazelle PT-OP-C Subjective Start: 04/01/23 16:08 Freq: Status: Active Protocol: Document 07/18/23 14:25 [facility] (Rec: 07/18/23 15:29 [facility] [id number]) OP-PT Subjective Patient Comments Patient Comments Reports things are up and down. Using KT Tape, wearing compression, doing MLD, exercising, elevation. HOping to buy [employer] next month. States she faxed information to hospital (PT has not received; gave patient another business card for her to fax directly to PT or email PT) . Patient is unsure if includes information about vendor for pump for patient. PT-OP-J Posture/Palpation/Skin Start: 04/01/23 16:08 Freq: Status: Active Protocol: Document 04/02/23 13:43 [facility] (Rec: 04/02/23 17:03 [facility] [id number]) Palpation Assessment Location lashaun LE Palpation Details no palpable fibrosis PT-OP-K Range of Motion Start: 04/01/23 16:08 Freq: Status: Active Protocol: Document 04/02/23 13:43 [facility] (Rec: 04/02/23 17:03 [facility] [id number]) Hip Goniometric Range of Motion Hip Measured in Degrees lashaun Hip ROM WFL Yes Knee Goniometric Range of Motion Knee Measured in Degrees lashaun Knee ROM WFL Yes Ankle and Foot Goniometric Range of Motion Ankle and Foot Measured in Degrees lashaun Ankle/Foot ROM WFL Yes PT-OP-N Lymphedema Start: 04/01/23 16:08 Freq: Status: Active Protocol: Document 07/18/23 14:25 [facility] (Rec: 07/18/23 15:29 [facility] [id number]) Lymphedema Measurements Lower Extremity Circumference Measurements Right Affected MT Heads 28.3 cm Mid-foot 27.5 cm Medial Malleolus 30.7 cm 10 cm From Medial Malleolus 29.5 cm 20 cm From Medial Malleolus 40.2 cm 30 cm From Medial Malleolus 46.4 cm 40 cm From Medial Malleolus 49 cm 50 cm From Medial Malleolus 60.8 cm 60 cm From Medial Malleolus 70 cm 70 cm From Medial Malleolus 85.3 cm Knee Joint 49.7 cm Hip 91.8 cm Left Affected MT Heads 27.2 cm Mid-foot 27.8 cm Medial Malleolus 30.8 cm 10 cm From Medial Malleolus 29.9 cm 20 cm From Medial Malleolus 40.3 cm 30 cm From Medial Malleolus 45.7 cm 40 cm From Medial Malleolus 49.3 cm 50 cm From Medial Malleolus 63.3 cm 60 cm From Medial Malleolus 69.8 cm 70 cm From Medial Malleolus 82.7 cm Knee Joint 49.3 cm Hip 87.5 cm PT-OP-Q Treatments Start: 04/01/23 16:08 Freq: Status: Active Protocol: Document 07/18/23 14:25 [facility] (Rec: 07/18/23 15:29 [facility] [id number]) Cardio Equipment Recumbent Stepper (Sci-Fit) Duration (Minutes) 10 Resistance 1.5 Seat Position 12 Other to facil lymphatic flow after compression bandaging. Lymphedema Treatment Manual Lymphatic Drainage Location for lashaun LE lymphedema Duration 50 Comments supine and sidelying. Lymphedema Wrapping Other patient donned compression knee highs and compression tights, bandaging at night Sequential Lymphedema Exercises Comments isometric hips and abdominals during treatment, doing HEP consistently Compression Garment Assessment Compression Garment Assessment Details Patient wearing prior compression 20-30 mm Hg, discussed layering as a possibility. Other Other patient still to make appointment PT has contacted [employer] regarding pump, awaiting approval. PT-OP-T Assessment and Plan Start: 04/01/23 16:08 Freq: Status: Active Protocol: Document 07/18/23 14:25 [facility] (Rec: 07/18/23 15:29 [facility] [id number]) Physical Therapy Assessment Goals Two Impairment activity tolerance Impairment Lymphedema Life Impact Scale 13% Custodial Goal (LTG) Decrease Lymphedema Life impact scale to no greater than 5% as measure of improved activity tolerance, ability to manage her lymphedema, and improved quality of life 05/01/23: goal progress, dec to 9 07/18/23: 7% LTG Duration 07/01/23 One Impairment lymphedema lashaun LE's right greater than left Short Term Goal (STG) Patient will be instructed in all aspects of lymphedema self -care to include skin care, elevation, self-massage, self- bandaging/compression options, and lymphedema exercises. 3/6/24: goal met STG Duration goal met Suspect Artist Goal (LTG) Decrease patient?s lymphedema to a stable level (no increase or decrease greater than 1 cm over the course of 1 week), patient to be independent with all aspects of self-care for lymphedema, and will obtain appropriate compression garment for lymphedema management in the home as well as a sequential pneumatic pump. LTG Duration 07/01/23 Assessment Summary Assessment Patient measurements mostly stable except proximal thigh. She is consistently doing her self care for lymphedema including elevation, skin care , manual lymphatic drainage, exercise, and compression. Despite completing more than 30 days of this conservative therapy she continues to have difficulty managing her lymphedema. Have highly recommended sequential pneumatic pump for home use. Previously submitted information to nonprofit [employer] for pump but they are not contracted with [employer]. Patient attempted sending information from [employer] to PT but not received. She will resend and PT to complete paperwork for [employer] contracted company to help her obtain a sequential pneumatic pump for home use to assist with self management of her lymphedema. Physical Therapy Plan Frequency and Duration Frequency of Treatment 2 visits Duration of treatment (weeks) 12 Plan of Care Start Date 07/01/23 Plan of Care End Date 10/01/23 Therapeutic Interventions Therapeutic Interventions Home Exercise Program, Lymphedema Management,Manual Therapy,Patient/Caregiver Education,Self-Care/Home Management,Soft Tissue Mobilization,Taping, Therapeutic Activities, Therapeutic Exercises Next Visit Focus/Plan Next Note Type Treatment Note Next Visit [facility] received information from patient to complete paperwork for lymphedema pump contracted with [employer]; received word that [employer] is not contracted with [employer]. Schedule 1-2 further appointments for training with use of sequential pneumatic pump as needed unless pump provider able to provide training.
--- NOTE | 2023-07-18 15:32 | PT.OPPOC ---
Physical, Occupational & Speech Therapy At Current Diagnoses Lymphedema, not elsewhere classified (07/18/23) Visit Care Team Role Provider Type Tia Diaz MD Family Provider Non-Staff Primary Care Provider Specialty: Medical Address: [address] [place], [address] Email: KARLOS Mendoza Attending Provider Non-Staff Referring Provider Specialty: Nursing Address: [address] [place], [address] Email: Plan Of Care PT-OP-T Assessment and Plan Start: 04/01/23 16:08 Freq: Status: Active Protocol: Document 07/18/23 14:25 [facility] (Rec: 07/18/23 15:29 [facility] [id number]) Physical Therapy Assessment Goals Two Impairment activity tolerance Impairment Lymphedema Life Impact Scale 13% Pencil Inspector Goal (LTG) Decrease Lymphedema Life impact scale to no greater than 5% as measure of improved activity tolerance, ability to manage her lymphedema, and improved quality of life 05/01/23: goal progress, dec to 9 07/18/23: 7% LTG Duration 07/01/23 One Impairment lymphedema lashaun LE's right greater than left Short Term Goal (STG) Patient will be instructed in all aspects of lymphedema self -care to include skin care, elevation, self-massage, self- bandaging/compression options, and lymphedema exercises. 05/01/23: goal met STG Duration goal met Intermediate Goal (LTG) Decrease patient?s lymphedema to a stable level (no increase or decrease greater than 1 cm over the course of 1 week), patient to be independent with all aspects of self-care for lymphedema, and will obtain appropriate compression garment for lymphedema management in the home as well as a sequential pneumatic pump. LTG Duration 07/01/23 Assessment Summary Assessment Patient measurements mostly stable except proximal thigh. She is consistently doing her self care for lymphedema including elevation, skin care , manual lymphatic drainage, exercise, and compression. Despite completing more than 30 days of this conservative therapy she continues to have difficulty managing her lymphedema. Have highly recommended sequential pneumatic pump for home use. Previously submitted information to nonprofit [employer] for pump but they are not contracted with [facility]. Patient attempted sending information from MD to PT but not received. She will resend and PT to complete paperwork for [facility] contracted company to help her obtain a sequential pneumatic pump for home use to assist with self management of her lymphedema. Physical Therapy Plan Frequency and Duration Frequency of Treatment 2 visits Duration of treatment (weeks) 12 Plan of Care Start Date 07/01/23 Plan of Care End Date 10/01/23 Therapeutic Interventions Therapeutic Interventions Home Exercise Program, Lymphedema Management,Manual Therapy,Patient/Caregiver Education,Self-Care/Home Management,Soft Tissue Mobilization,Taping, Therapeutic Activities, Therapeutic Exercises Next Visit Focus/Plan Next Note Type Treatment Note Next Visit Plan [facility] received information from patient to complete paperwork for lymphedema pump contracted with [facility]; received word that [employer] is not contracted with [facility]. Schedule 1-2 further appointments for training with use of sequential pneumatic pump as needed unless pump provider able to provide training. Plan of Care Dates Plan of Care Start Date 07/01/23 Plan of Care End Date 10/01/23 Electronically Signed by: Grecia Manley, PT 07/18/23 [id number] If you are in agreement with this Plan of Care, please return a signed and dated copy. I have reviewed this Plan of Care and certify that the skilled therapy services above are required to meet the patient?s needs. Physician Signature Date Printed Name and Credentials Clinical Instructor Signature Printed Name and Credentials
--- NOTE | 2024-01-13 11:21 | PT.OPDS ---
Current Diagnoses Lymphedema, not elsewhere classified (07/18/23) Visit Care Team Role Provider Type Tia Diaz MD Family Provider Non-Staff Primary Care Provider Specialty: Medical Address: [address] [place], [address] Email: KARLOS Mendoza Attending Provider Non-Staff Referring Provider Specialty: Nursing Address: [address] [place], [address] Email: Visit Number Visit Number 12 Discharge Summary PT-OP-B Current Condition Start: 04/01/23 16:08 Freq: Status: Active Protocol: Document 07/18/23 14:25 SAK (Rec: 07/18/23 15:29 [facility] [id number]) Current Condition History of Current Condition Onset Date 3 years Current Complaints lashaun LE swelling right greater than left History of Current Condition Right SWETA 2005, (left in 2004) . Prior to revision right hip started to get swelling right LE, now has started to increase on the right side. Was wearing pantyhose style 20 -30 mm Hg, but had to go to ER due to BP issue, started wearing socks only. Swelling continues to worsen. Wear compression socks 15-20 knee high, then KT tape upper legs. Does exercises; free weights , gazelle PT-OP-C Subjective Start: 04/01/23 16:08 Freq: Status: Active Protocol: Document 07/18/23 14:25 SAK (Rec: 07/18/23 15:29 [facility] [id number]) OP-PT Subjective Patient Comments Patient Comments Reports things are up and down. Using KT Tape, wearing compression, doing MLD, exercising, elevation. HOping to buy Bioflect next month. States she faxed information to hospital (PT has not received; gave patient another business card for her to fax directly to PT or email PT) . Patient is unsure if includes information about vendor for pump for patient. PT-OP-J Posture/Palpation/Skin Start: 04/01/23 16:08 Freq: Status: Active Protocol: Document 04/02/23 13:43 SAK (Rec: 04/02/23 17:03 [facility] [id number]) Palpation Assessment Location lashaun LE Palpation Details no palpable fibrosis PT-OP-K Range of Motion Start: 04/01/23 16:08 Freq: Status: Active Protocol: Document 04/02/23 13:43 SAK (Rec: 04/02/23 17:03 SAK [id number]) Hip Goniometric Range of Motion Hip lashaun Hip ROM WFL Yes Knee Goniometric Range of Motion Knee lashaun Knee ROM WFL Yes Ankle and Foot Goniometric Range of Motion Ankle and Foot lashaun Ankle/Foot ROM WFL Yes PT-OP-N Lymphedema Start: 04/01/23 16:08 Freq: Status: Active Protocol: Document 07/18/23 14:25 SAK (Rec: 07/18/23 15:29 SAK [id number]) Lymphedema Measurements Lower Extremity Circumference Measurements Right Affected MT Heads 28.3 cm Mid-foot 27.5 cm Medial Malleolus 30.7 cm 10 cm From Medial Malleolus 29.5 cm 20 cm From Medial Malleolus 40.2 cm 30 cm From Medial Malleolus 46.4 cm 40 cm From Medial Malleolus 49 cm 50 cm From Medial Malleolus 60.8 cm 60 cm From Medial Malleolus 70 cm 70 cm From Medial Malleolus 85.3 cm Knee Joint 49.7 cm Hip 91.8 cm Left Affected MT Heads 27.2 cm Mid-foot 27.8 cm Medial Malleolus 30.8 cm 10 cm From Medial Malleolus 29.9 cm 20 cm From Medial Malleolus 40.3 cm 30 cm From Medial Malleolus 45.7 cm 40 cm From Medial Malleolus 49.3 cm 50 cm From Medial Malleolus 63.3 cm 60 cm From Medial Malleolus 69.8 cm 70 cm From Medial Malleolus 82.7 cm Knee Joint 49.3 cm Hip 87.5 cm PT-OP-T Assessment and Plan Start: 04/01/23 16:08 Freq: Status: Active Protocol: Document 01/13/24 11:20 SAK (Rec: 01/13/24 11:21 [facility] [id number]) Physical Therapy Plan Discharge Physical Therapy Discharge Reasons No Longer Attending PT
== END 2024-01-15 14:03 | disposition home or self-care (01) ==
LOC: PHYS 14:30
PROVIDERS: Family Provider Student in an Organized Health Care Education/Training Program; PCP Student in an Organized Health Care Education/Training Program; Referring Provider Registered Nurse; Visit Provider Registered Nurse
DX: I89.0 Lymphedema, not elsewhere classified (principal)
CPT/HCPCS: 29581; 97016; 97110; 97140; 97162; 97535

== ENCOUNTER → 2023-12-02 09:47 | Outpatient (CLI) | payer OTHER, SELFPAY ==
[2020-06-02 09:26] VITALS: BMI 35.4
--- NOTE | 2023-12-02 09:48 | DI.CT.S_ITS ---
PROCEDURE: CT UE LT WO CON INDICATIONS: LEFT GLENOHUMERAL JOINT ARTHRITIS TECHNIQUE: Noncontrast 0.75 mm thick sections acquired from the acromioclavicular joint to the inferior scapula, with coronal and sagittal reformatting. COMPARISON: [facility], MR, MR SHOULDER LT WO CON, 07/03/2023, 12:05. [facility] [place], CR, XR SHOULDER 2+ VIEWS LEFT, 06/10/2023, 11:19. FINDINGS: Image quality: Excellent. Bones: Mild to moderate acromioclavicular joint osteoarthritic changes are seen with joint space narrowing, subchondral sclerosis and downward osteophyte formation depressing the musculotendinous junction of supraspinatus. Moderate to severe glenohumeral joint osteoarthritic changes are seen with near complete loss of joint space, extensive subchondral sclerosis and subcortical cystic changes as well as prominent inferior marginal osteophyte formation. There is no acute shoulder fracture or dislocation. No suspicious bony lesions. The visualized left upper to mid ribs are intact. No acute vertebral body compression fracture is seen. Soft tissues: There is no gross full-thickness rotator cuff tendon rupture. No significant rotator cuff muscle atrophy is seen on sagittal images. No soft tissue mass or abnormal soft tissue calcifications. No discrete drainable fluid collection. Small to moderate glenohumeral joint effusion is seen, no calcified intra-articular loose bodies. The visualized left lung field is clear. IMPRESSION: 1. Study is for surgical planning. 2. Moderate to severe glenohumeral joint osteoarthritis and [id number] acromioclavicular joint osteoarthritis. No acute fracture or dislocation. No suspicious bony lesions. 3. No definite full-thickness rotator cuff tendon rupture. No significant rotator cuff muscle atrophy. No abnormal soft tissue calcifications or soft tissue mass. No drainable fluid collection. Small to moderate joint effusion, no calcified intra-articular loose bodies. Dictated by: Micheal March M.D. on 12/02/2023 at 15:21 Approved by: Micheal March M.D. on 12/02/2023 at 15:25
== END ==
LOC: CT 09:48
PROVIDERS: Family Provider Student in an Organized Health Care Education/Training Program; PCP Student in an Organized Health Care Education/Training Program; Referring Provider Orthopaedic Surgery; Visit Provider Orthopaedic Surgery
DX: M19.012 Primary osteoarthritis, left shoulder (principal); M25.412 Effusion, left shoulder
CPT/HCPCS: 73200

== ENCOUNTER → 2024-01-22 10:11 | Outpatient (CLI) | payer OTHER, SELFPAY ==
[2020-06-02 09:26] VITALS: BMI 35.4
--- NOTE | 2024-01-22 10:13 | DI.CT.S_ITS ---
PROCEDURE: CT UE LT WO CON INDICATIONS: LEFT GLENOHUMERAL JOINT ARTHRITIS TECHNIQUE: Noncontrast 0.75 mm thick sections acquired from the acromioclavicular joint to the inferior scapula, with coronal and sagittal reformatting. COMPARISON: [facility], CT, CT UE LT WO CON, 12/02/2023, 9:56. FINDINGS: Image quality: Excellent. Bones: There is moderate acromioclavicular joint osteoarthritis with joint space narrowing, subchondral sclerosis and downward osteophyte formation depressing the musculotendinous junction of supraspinatus. Moderate to severe glenohumeral joint osteoarthritic changes are seen with joint space narrowing, subchondral sclerosis and subcortical cystic changes. Prominent inferior marginal osteophyte formation is also noted. There is no shoulder fracture or dislocation. No suspicious bony lesions. The visualized left ribs are intact. Soft tissues: There is no gross full-thickness rotator cuff tendon rupture. Mild supraspinatus muscle atrophy is seen on sagittal images. No abnormal soft tissue calcifications or calcified intra-articular loose bodies. Moderate joint effusion and small amount of subacromial subdeltoid bursal fluid is seen. The visualized left lung field is clear. No axillary lymphadenopathy. No soft tissue mass. IMPRESSION: 1. Moderate to severe left glenohumeral joint osteoarthritis and moderate left acromioclavicular joint osteoarthritis. No acute fracture or dislocation. No suspicious bony lesions. 2. No gross full-thickness rotator cuff tendon rupture. Mild supraspinatus muscle atrophy. No soft tissue mass or drainable fluid collection. 3. Moderate glenohumeral joint effusion and small subacromial subdeltoid bursal fluid. No calcified intra-articular loose bodies. No abnormal soft tissue calcifications. Dictated by: Micheal March M.D. on 01/22/2024 at 13:42 Approved by: Micheal March M.D. on 01/22/2024 at 13:45
== END ==
PROVIDERS: Family Provider Student in an Organized Health Care Education/Training Program; PCP Family Medicine; Referring Provider Orthopaedic Surgery; Visit Provider Orthopaedic Surgery
DX: M19.012 Primary osteoarthritis, left shoulder (principal); M25.412 Effusion, left shoulder
CPT/HCPCS: 73200

== ENCOUNTER → 2024-03-09 16:38 | Outpatient (CLI) | payer OTHER, SELFPAY ==
[2020-06-02 09:26] VITALS: BMI 35.4
--- NOTE | 2024-03-09 16:46 | EKG_ITS ---
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
[2024-03-09 17:17] LABS: Add Manual Diff / Slide Review NO; Basophils Absolute Auto 0 /uL (0-100); Basophils Percent Auto 0.9 % (0-2); Eosinophils Absolute Auto 100 /uL (0-450); Eosinophils Percent Auto 1.5 % (2-4); Hematocrit 39.1 % (36-46); Hemoglobin 12.9 g/dL (12.0-16.0); Lymphocytes Absolute Auto 2100 /uL (1100-4500); Lymphocytes Percent Auto 46.5 % (25-40); Mean Corpuscular Hemoglobin 29.4 PG (26-34); Monocytes Absolute Auto 600 /uL (0-900); Monocytes Percent Auto 13.3 % (3-14); Neutrophils Absolute Auto 1700 /uL (1500-7000); Neutrophils Percent Auto 37.8 % (50-75); Platelet Count 166 X10^3/uL (150-400); Red Cell Distribution Width 14.2 % (11.6-14.8); White Blood Cell Count 4.5 X10^3/uL (4.5-11.0)
[2024-03-09 17:24] LABS: Prothrombin Time 11.4 SECONDS (9.4-12.5)
[2024-03-09 17:26] LABS: PTT Partial Thromboplastin Tim 31 SECONDS (25.1-36.5)
[2024-03-09 17:29] LABS: BUN Creatinine Ratio 20.7 (6-22); Blood Urea Nitrogen 17 mg/dL (7-17); Calcium 9.9 mg/dL (8.4-10.2); Carbon Dioxide 31 mmol/L (22-32); Chloride 104 mmol/L (98-107); Estimated Glomerular Filt Rate > 60 mL/min (>60); Glucose 93 mg/dL (80-110); HEMOLYSIS < 15 (0-50); Potassium 4.2 mmol/L (3.4-5.1); Sodium 139 mmol/L (137-145)
== END ==
PROVIDERS: Family Provider Student in an Organized Health Care Education/Training Program; PCP Family Medicine; Referring Provider Orthopaedic Surgery; Visit Provider Orthopaedic Surgery
DX: Z01.818 Encounter for other preprocedural examination (principal); Z01.812 Encounter for preprocedural laboratory examination; Z51.81 Encounter for therapeutic drug level monitoring
CPT/HCPCS: 36415; 80048; 85025; 85610; 85730; 93005; 93010

== ENCOUNTER 2024-04-09 10:58 | Day surgery (SDC) | payer OTHER, SELFPAY ==
[2020-06-02 09:26] VITALS: BMI 35.4
[2024-04-01 11:56] VITALS: BMI 38.5
[2024-04-09] VITALS (7 sets, daily range): BP systolic 120–146; BP diastolic 67–102; PULSE 60–67; RESP 12–18; TEMP 36.2–36.4; O2SAT 94–100; BMI 37.2
--- NOTE | 2024-04-09 06:00 | DI.RAD.S_ITS ---
PROCEDURE: XR SHOULDER LT MIN 2V INDICATIONS: TSA TECHNIQUE: 2 views of the shoulder were acquired. COMPARISON: None. FINDINGS: Bones: Patient is status post left shoulder arthroplasty. Shoulder alignment is anatomic. No fractures or dislocations. No suspicious bony lesions. Visualized ribs appear intact. Soft tissues: Expected postsurgical changes are seen in left shoulder soft tissue. IMPRESSION: Postop changes from left shoulder arthroplasty with anatomic shoulder alignment. Dictated by: Micheal March M.D. on 04/09/2024 at 16:01 Approved by: Micheal March M.D. on 04/09/2024 at 16:03
[2024-04-09] MEDS: ACETAMINOPHEN 325 MG TABLET 975 MG PO (11:59)
[2024-04-09] MEDS: LACTATED RINGERS 1,000 ML 42 ML IV ×2 (12:00→14:36)
--- NOTE | 2024-04-09 12:18 | PM.PREOP ---
Pre-operative Note Interval Note History & Physical reviewed/Exam performed by Physician: Yes Changes to H&P: No
[2024-04-09] MEDS: VANCOMYCIN 1,000 MG in SODIUM CHLORIDE 0.9% 250 ML 250 MG IV (13:11)
--- NOTE | 2024-04-09 13:20 | SUR.OPER ---
Beach chair with Maquet shoulder positioner. Lower body on padded OR bed. Head in foam padded head cradle, secured with straps. Non-operative arm secured <90 degrees abduction. Pillow under knees. Safety belt at thigh. Cloth tape over blanket over lower legs.
[2024-04-09] MEDS: GENTAMICIN 420 MG in SODIUM CHLORIDE 0.9% 100 ML 110.5 MG IV (13:21)
[2024-04-09] MEDS: LIDOCAINE 1% W/EPI 20ML 20 ML INJ (13:38)
[2024-04-09] MEDS: TRANEXAMIC ACID 1,000 MG VIAL 2000 MG INJ (14:27)
--- NOTE | 2024-04-09 14:45 | P.OP_ITS ---
Operative Date/Time/Diagnoses Date of procedure: 04/09/24 Time of procedure: 13:30 Pre-op diagnosis: Left glenohumeral joint arthritis Post-op diagnosis: same Procedure & Clinicians Procedure: Left total shoulder arthroplasty Same procedure as scheduled: Yes Indications: End-stage arthritic changes left shoulder joint Surgeon: Juan Kuhn Bottom Scrubber: Nikunj Robles Anesthesia Type: General and Peripheral nerve block Operative Notes Findings: End-stage arthritic changes to the left glenohumeral joint. No sign of any significant rotator cuff tears. No sign of any rotator cuff arthropathy. Significant wear to the humeral head and the glenoid particularly posteriorly. Closure Type: primary Applied: implant(s) (Medium cage screw, 45 mm trunnion, 45/17 humeral head, medium glenoid.) Estimated Blood Loss (mL): 100 Procedure in detail: On date of service, Patient was met in the holding area. The operative site was signed and witnessed by the OR staff. The surgeries once again discussed with the patient and any remaining questions they had were answered fully. Patient was taken back to the operating theater and placed on the operating table in a supine position. Great care was taken to ensure that all bony prominences were properly padded. Patient was then placed into the beach chair position. The head and neck were properly positioned and secured. A timeout was performed verifying patient's name, procedure, and the operative site. The left upper extremity was then prepped and draped in the normal sterile fashion. Previously, the bony anatomy and incision were marked out as well as injected with Marcaine with epinephrine. A deltopectoral approach was performed. 10 blade was used to incise the skin and fascial tissue. A deep knife was used to continue sharp dissection until the cephalic vein was visualized. The cephalic vein was dissected free allowing us to expose the deltopectoral interval. This interval was then developed. A Guerin elevator was used to free up the deltoid of any scarring both superficially as well as deeply. The vein and the deltoid were taken laterally while the pectoralis was taken medially. This gave us good visualization of the strap muscles. The clavipectoral fascia was removed and the strap muscles were then retracted medially with the pectoralis. This gave us stabilization of the subscapularis. The circumflex vessels were ligated and the subscapularis was sharply excised off the lesser tuberosity and then tagged. Once the subscapularis was released we're able to dislocate the shoulder. Patient had end-stage arthritic changes to the humeral head as well as the glenoid with large osteophytes anterior inferiorly as well as posteriorly. A Ronger was then used to remove the osteophytes. See findings above for descriptions of the humeral head and glenoid. Next, cutting guide was placed and a saw was used to remove the humeral head. Once the head was removed it was templated. A 45 mm trunnion provided the best coverage.. Guidewire was placed and a medium size cage screw was measured. Protector placed for the osteotomy was then placed and and we turned our attention back to the subscapularis as well as the glenoid. The subscapularis was freed up and a 360? fashion. The degenerative anterior and inferior capsular tissue was removed. This was followed by removing the degenerative labral tissue from around the glenoid as well as the biceps insertion. Retractors were used to protect the axillary nerve while we remove the degenerative capsular and labral tissue. This gave us good visualization of the glenoid. Glenoid trials were used until we found the appropriate fit and curvature. A medium glenoid provided the best fit. The center hole was drilled followed by reaming of the glenoid. The wound was copiously irrigated after reaming. Next the pegs were drilled and a trial glenoid was impacted into place. Once we were satisfied with the preparation of the glenoid, the final component was cemented into place. This was followed by impaction. We Return to our attention back to the humerus. The protector plate was removed and heads were trialed once again until we found the appropriate fit. A 45 x 17 humeral head head provided the best coverage as well as stability to the glenohumeral joint. Trials were removed and bone tunnels were made into the humeral neck. #2 FiberWire were passed through the bone tunnels for eventual subscapularis repair. The trunnion and cage screw and head were impacted into place and the shoulder was reduced. It was taken through range of motion and was felt to be stable in both posterior translation as well as external and internal rotation with abduction. The subscapularis was repaired back to the lesser tuberosity through the bone tunnels. This was then reinforced with soft tissue repair. Part of the rotator interval was then closed. The rest of the wound was closed in a layered fashion. The shoulder was then cleaned dried and dressed and the patient was taken to the PACU in stable condition. Patient will follow our postoperative protocol for total shoulder arthroplasty. Complications: none Post-operative Condition: stable Disposition: same day surgery Plan for aftercare: Patient will follow our postoperative protocol for a total shoulder arthroplast roc
== END 2024-04-09 16:05 | disposition home or self-care (01) ==
LOC: OR 10:59 → AC 11:00
PROVIDERS: Family Provider Student in an Organized Health Care Education/Training Program; PCP Family Medicine; Referring Provider Orthopaedic Surgery; Visit Provider Orthopaedic Surgery
PROC: (CPT 23472; principal; 2024-04-09 12:45)
DX: M19.012 Primary osteoarthritis, left shoulder (principal); G89.18 Other acute postprocedural pain; M25.712 Osteophyte, left shoulder
CPT/HCPCS: 23472; 64450; 73030; C1776; C1713; J1100; J2250; J2405; J2704; J3010; J3490

== ENCOUNTER → 2024-04-16 12:19 | Outpatient (CLI) | payer OTHER, SELFPAY ==
[2020-06-02 09:26] VITALS: BMI 35.4
--- NOTE | 2024-04-16 12:22 | DI.US.S_ITS ---
PROCEDURE: US PERIPH VENOUS UP EXTREM LT INDICATIONS: STATUS POST SURGERY - please evaluate for DEEP VEIN THROMBOSIS TECHNIQUE: Real-time imaging, as well as color and pulse Doppler interrogation, was performed of the upper extremity deep veins from the inferior neck to the antecubital fossa. COMPARISON: None. FINDINGS: The internal jugular vein, visualized portions of the subclavian vein, axillary, and brachial veins are free of intraluminal thrombus. Where physically possible, the veins are normally compressible. Color and pulse Doppler demonstrate normal intraluminal flow, with expected phasicity and pulsatility. Bandaging material is seen, which limits evaluation of the axillary vein and the brachial vein. Nonocclusive superficial venous thrombosis can be seen within the mid and distal upper arm within the cephalic vein. IMPRESSION: No findings of upper extremity deep venous thrombosis can be seen. Nonocclusive venous thrombosis can be seen within the mid and distal upper arm within the cephalic vein. Bandaging material somewhat limits evaluation. Dictated by: Topher Salazar M.D. on 04/16/2024 at 13:21 Approved by: Topher Salazar M.D. on 04/16/2024 at 13:23
== END ==
PROVIDERS: Family Provider Student in an Organized Health Care Education/Training Program; PCP Family Medicine; Referring Provider Orthopaedic Surgery; Visit Provider Orthopaedic Surgery
DX: I82.612 Acute embolism and thrombosis of superficial veins of left upper extremity (principal); Z96.612 Presence of left artificial shoulder joint
CPT/HCPCS: 93971